=== PATIENT | female | born 1935 | race Caucasian/White ===

== ENCOUNTER 2018-01-04 14:12 | Outpatient (CLI) | payer MEDICARE, OTHER | END 2018-01-04 14:13 | disposition critical access hospital (66) | LOC: EMS 14:12 | PROVIDERS: ATTEND Surgery | DX: M25.551 Pain in right hip (principal); W01.0XXA Fall on same level from slipping, tripping and stumbling without subsequent striking against object, initial encounter | CPT/HCPCS: A0425; A0429 ==

== ENCOUNTER 2018-01-04 14:39 | Inpatient (IN) | payer MEDICARE, OTHER ==
--- NOTE | 2018-01-04 15:20 | XRAY Report ---
EXAM: RIGHT HIP AND PELVIS RADIOGRAPHY EXAM DATE: 01/04/2018 02:50 PM. HISTORY: Fall hip pain. COMPARISONS: None. TECHNIQUE: 1 view of the pelvis and 1 view of the hip. FINDINGS: Bones: Nondisplaced intertrochanteric fracture of the right femur. Joints: The bilateral hip, pubis symphysis, and sacroiliac joints are preserved. Soft Tissues: Normal. No soft tissue swelling. IMPRESSION: Nondisplaced intertrochanteric fracture of the right femur. [facility] Referring Provider Line: [phone] SITE ID: [id number]
--- NOTE | 2018-01-04 15:26 | ED Physician Documentation ---
PD HPI LOWER EXT INJURY - Stated complaint Stated Complaint: GLF R HIP PX - Chief complaint Chief Complaint: Ext Problem - History obtained from History obtained from: Patient, EMS - History of Present Illness PD HPI LOW EXT INJURY LOCATION: Right, Hip Type of injury: Fall Where injury occurred: Other (parking lot of [employer]) Timing - onset: Today Timing - duration: Hours Timing - details: Abrupt onset, Still present Improved by: Rest, Immobilization Worsened by: Moving, Palpating Associated symptoms: No: Weakness, Numbness, Tingling Contributing factors: No: Anticoagulated Similar symptoms before: Diagnosis (hip contusion) Recently seen: Not recently seen - Additional information Additional information: Previously healthy 82-year-old female was in the parking lot of [employer] with her shopping cart and her shopping cart started to roll away she turned to radha after the shopping cart and fell landing on her right hip. SHe was able to be helped up and she was able to bear weight on her left leg but not her right leg and she has pain in the hip. She is brought to the hospital by ambulance without shortening or external rotation. Review of Systems Constitutional: denies: Fever, Chills, Myalgias Eyes: denies: Decreased vision Ears: denies: Ear pain Nose: denies: Rhinorrhea / runny nose, Congestion Throat: denies: Dental pain / toothache, Sore throat Cardiac: denies: Chest pain / pressure, Palpitations Respiratory: denies: Dyspnea, Cough GI: denies: Abdominal Pain, Nausea, Vomiting, Diarrhea : denies: Dysuria, Frequency Skin: denies: Rash Musculoskeletal: reports: Extremity pain, Joint pain, Pain with weight bearing. 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 - Present Medications Home Medications: Ambulatory Orders Medication Instructions Recorded Confirmed Levothyroxine [Synthroid] 25 mcg PO DAILY 01/04/18 01/04/18 - Allergies Allergies/Adverse Reactions: Allergies Allergy/AdvReac Type Severity Reaction Status Date / Time No Known Drug Allergies Allergy Verified 01/04/18 14:48 - Social History Does the pt smoke?: No Smoking Status: Never smoker Does the pt drink ETOH?: No Does the pt have substance abuse?: No - Immunizations Immunizations are current?: Yes PD ED PE NORMAL - Vitals Vital signs reviewed: Yes (Hypertensive) - General General: Alert and oriented X 3, No acute distress, Well developed/nourished, Other (Slim 5 foot tall 82-year-old female who is in no distress she appears to be in good health.) - HEENT HEENT: Atraumatic, PERRL, EOMI - Neck Neck: Supple, no meningeal sign - Cardiac Cardiac: RRR, No murmur - Respiratory Respiratory: No respiratory distress, Clear bilaterally - Abdomen Abdomen: Soft, Non tender - Back Back: No CVA TTP, No spinal TTP - Derm Derm: Normal color, Warm and dry, No rash - Extremities Extremities: No deformity, No edema, Other (There is pain to flexion extension of the hip there is not much pain on external rotation there is no shortening or rotation in the distal neurovascular components are intact. There is pain to palpation posteriorly over the trochanter.) - Neuro Neuro: No motor deficit, No sensory deficit Eye Opening: Spontaneous Motor: Obeys Commands Verbal: Oriented GCS Score: 15 - Psych Psych: Normal mood, Normal affect Results - Vitals Vitals: Vital Signs - 24 hr 01/04/18 14:40 Temperature 36.5 C Heart Rate 67 Respiratory 18 Rate Blood Pressure 191/83 H O2 Saturation 97 Oxygen O2 Source Room air - Labs Labs: Laboratory Tests 01/04/18 01/04/18 01/04/18 15:31 15:31 15:31 WBC 6.7 RBC 4.60 Hgb 14.8 Hct 43.5 MCV 94.5 MCH 32.2 H MCHC 34.0 RDW 13.1 Plt Count 228 MPV 7.6 L Neut # 6.0 Lymph # 0.4 L Furnas # 0.2 Eos # 0.0 Baso # 0.0 Absolute Nucleated RBC 0.00 Nucleated RBC % 0.0 Sodium 136 Potassium 3.8 Chloride 100 L Carbon Dioxide 28 Anion Gap 8.0 BUN 16 Creatinine 1.0 Estimated GFR (MDRD) 53 L Glucose 117 H Calcium 9.5 Total Bilirubin 0.8 AST 24 ALT 17 Alkaline Phosphatase 63 Troponin I < 0.04 Total Protein 7.2 Albumin 4.4 Globulin 2.8 Albumin/Globulin Ratio 1.6 Lipase 30 Urine Color Urine Clarity Urine pH Ur Specific [place] Urine Protein Urine Glucose (UA) Urine Ketones Urine Occult Blood Urine Nitrite Urine Bilirubin Urine Urobilinogen Ur Leukocyte Esterase Ur Microscopic Review Urine Culture Comments 01/04/18 16:23 WBC RBC Hgb Hct MCV MCH MCHC RDW Plt Count MPV Neut # Lymph # Furnas # Eos # Baso # Absolute Nucleated RBC Nucleated RBC % Sodium Potassium Chloride Carbon Dioxide Anion Gap BUN Creatinine Estimated GFR (MDRD) Glucose Calcium Total Bilirubin AST ALT Alkaline Phosphatase Troponin I Total Protein Albumin Globulin Albumin/Globulin Ratio Lipase Urine Color YELLOW Urine Clarity CLEAR Urine pH 6.0 Ur Specific [place] 1.010 Urine Protein NEGATIVE Urine Glucose (UA) NEGATIVE Urine Ketones NEGATIVE Urine Occult Blood NEGATIVE Urine Nitrite NEGATIVE Urine Bilirubin NEGATIVE Urine Urobilinogen 0.2 (NORMAL) Ur Leukocyte Esterase NEGATIVE Ur Microscopic Review NOT INDICATED Urine Culture Comments NOT INDICATED - Rads (name of study) right hip Radiology: Prelim report reviewed (Impression: Nondisplaced intertrochanteric fracture of the right femur.), EMP read indepedently, See rad report PD MEDICAL DECISION MAKING - ED course Complexity details: reviewed old records, reviewed results, re-evaluated patient , considered differential, d/w patient ED course: 82-year-old female with a fall today has an intertrochanteric fracture of the right hip. Dr. Glass is consulted in the case and recommends admission to medical service for potential surgery tomorrow. Dr. Deneen Donohue is consulted in the case for admission and will care for the patient in the hospital Departure - Departure Disposition: [facility] DC/Xfer Clinical Impression: Closed right hip fracture Qualifiers: Encounter type: initial encounter Qualified Code(s): S72.001A - Fracture of unspecified part of neck of right femur, initial encounter for closed fracture Condition: Stable
[2018-01-04 15:38] LABS: BASOPHILS % (AUTO) 0.5 %; EOSINOPHILS % (AUTO) 0.3 %; HGB - HEMOGLOBIN 14.8 g/dL (12.0-16.0); LYMPHOCYTES # (AUTO) 0.4 10^3/uL (1.5-3.5); LYMPHOCYTES % (AUTO) 6.6 %; MEAN CORPUSCULAR HEMOGLOBIN 32.2 pg (27.0-31.0); MEAN CORPUSCULAR VOLUME 94.5 fL (81.0-99.0); MEAN PLATELET VOLUME 7.6 fL (7.9-10.8); MONOCYTES # (AUTO) 0.2 10^3/uL (0.0-1.0); MONOCYTES % (AUTO) 3.6 %; PLT - PLATELET COUNT 228 10^3/uL (130-450); RED CELL DISTRIBUTION WIDTH 13.1 % (12.0-15.0); WHITE BLOOD COUNT 6.7 x10^3/uL (4.8-10.8)
[2018-01-04 15:47] LABS: ALBUMIN 4.4 g/dL (3.2-5.5); ALBUMIN/GLOBULIN RATIO 1.6 (1.0-2.2); BILIRUBIN,TOTAL 0.8 mg/dL (0.2-1.0); CALCIUM 9.5 mg/dL (8.5-10.3); TOTAL PROTEIN 7.2 g/dL (6.7-8.2)
[2018-01-04] MEDS ORDERED: KETOROLAC 60 MG/2 ML VIAL IVP STA (16:28)
[2018-01-04] MEDS ORDERED: SODIUM CHLORIDE FLUSH 0.9% 10 ML SYRINGE IVP PRN (16:30)
[2018-01-04 16:35] LABS: BILIRUBIN,URINE NEGATIVE (NEGATIVE); CLARITY,URINE CLEAR (CLEAR); GLUCOSE, URINE (UA) NEGATIVE (NEGATIVE); KETONES,URINE (UA) NEGATIVE (NEGATIVE); LEUKOCYTE ESTERASE, URINE NEGATIVE (NEGATIVE); NITRITE,URINE NEGATIVE (NEGATIVE); OCCULT BLOOD,URINE NEGATIVE (NEGATIVE); PROTEIN,URINE NEGATIVE (NEGATIVE); UROBILINOGEN,URINE 0.2 (NORMAL) E.U./dL (NORMAL)
[2018-01-04] MEDS ORDERED: ZOLPIDEM 5 MG TABLET PO PRN (16:35)
[2018-01-04] MEDS ORDERED: HYDROcod/ACETAM 5/325 MG TABLET PO PRN (16:35)
[2018-01-04] MEDS ORDERED: ONDANSETRON 4 MG/2 ML VIAL IVP PRN (16:35)
[2018-01-04] MEDS ORDERED: ACETAMINOPHEN 325 MG TABLET PO PRN (16:35)
--- NOTE | 2018-01-04 16:56 | HISTORY & PHYSICAL EXAMINATION ---
Chief Complaint - Chief Complaint Chief Complaint: right hip injury History of Present Illness - Admitted From Admitted From:: ER - History Obtained From History obtained from: pt - History of Present Illness HPI Comment/Other: Ms. Aguilar is 82-year-old female with a past medical history of hypothyroidism, who present ER for right hip injury. Pt report she was the parking lot of a grocery store. Her shopping cart was starting to run. She tried to grasp and radha the shopping cart but fall and hit the right hip at ground. When she moves her right leg she feel very pain. No pain when she rest her right leg. Pt denies other injury. Denies other complaints. Lab test in ER is unremarkable. Xray of hip reveals nondisplaced intertrochanteric fracture of the right femur. Orthopedics was consulted. pt will have surgery tomorrow. 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 Pt had one son and one daughter. Living arrangement: At home Living Situation: With spouse/s.o. Social History Notes: pt denies cigarette smoking, alcohol and drug abuse. - Substance History Use: Uses substance without health or social issues: NONE Abuse: Recurrent use of substance despite neg consequences: NONE Dependence: Experiences withdrawal or developed tolerances: NONE - POLST POLST Status: Full Code Meds/Allgy - Home Medications Home Medications: Ambulatory Orders Medication Instructions Recorded Confirmed Calcium/Magnesium/Vitamin D3 1 each PO DAILY 01/04/18 01/04/18 [Trevor-Mag Complex 300-150 mg Tab] Cholecalciferol (Vitamin D3) 5,000 unit PO DAILY 01/04/18 01/04/18 [Vitamin D3] Cyanocobalamin (Vitamin B-12) 500 mcg SL DAILY 01/04/18 01/04/18 [Vitamin B-12 (500 mcg sublingual)] Levothyroxine [Synthroid] 25 mcg PO DAILY 01/04/18 01/04/18 - Allergies Allergies/Adverse Reactions: Allergies Allergy/AdvReac Type Severity Reaction Status Date / Time No Known Drug Allergies Allergy Verified 01/04/18 14:48 Review of Systems - Constitutional Constitutional: denies: Fatigue, Fever, Chills, Malaise, Weakness, Poor appetite , Diaphoresis, Night sweats, Weight gain, Weight loss - Eyes Eyes: denies: Pain, Irritation, Amaurosis, Blurred vision, Spots in vision, Field loss, Vision loss, Dipolpia - Ears, Nose & Throat Ears, Nose & Throat: denies: Ear pain, Hearing loss, Hearing aids, Tinnitus, Vertigo, Nasal pain, Nasal discharge, Nosebleeds, Nasal obstruction, Nasal congestion, Postnasal drainage, Dentures, Sore throat, Bleeding gums - Cardiovascular Cariovascular: denies: Irregular heart rate, Palpitations, Chest pain, Edema, Lightheadedness, Syncope, Exertional dyspnea, Decr. exercise tolerance - Respiratory Respiratory: denies: Cough, Sputum production, Wheezing, Snoring, Hemoptysis, Orthopnea, SOB at rest, SOB with exertion, Stridor, Pleuritic pain - Gastrointestinal Gastrointestinal: denies: Abdominal pain, Abdominal distention, Constipation, Diarrhea, Change in bowel habits, Rectal bleeding, Black stools, Bloody stools, Nausea, Vomiting, Spencer blood emesis, Coffee grounds emesis, Reflux/heartburn - Genitourinary Genitourinary: denies: Dysuria, Frequency, Urgency, Hematuria, Incontinence, Flank pain, Nocturia - Musculoskeletal Musculoskeletal: denies: Muscle pain, Back pain, Muscle aches, Stiffness, Limited range of motion, Muscle weakness, Gout, Joint pain - Integumentary Integumentary: denies: Rash, Pruritis, Lesions, Dryness, Lumps, Acne, Pigment changes, Nail changes - Neurological Neurological: denies: General weakness, Focal weakness, Headache, Dizziness, Numbness, Memory problems, Pre-existing deficit, Abnormal gait, Seizures, Incoordination, Slurred speech - Psychiatric Psychiatric: denies: Depression, Anxiety, Suicidal, Delusions, Hallucinations, Homicidal - Endocrine Endocrine: denies: Polyuria, Polydypsia, Polyphagia, Intolerance to cold, Intolerance to heat - Hematologic/Lymphatic Hematologic/Lymphatic: denies: Anemia, Bruising, Petechiae, Lymphadenopathy, Bleeding tendencies, Recurrent infections Exam - Vital Signs Reviewed Vital Signs: Yes Vital Signs: Vital Signs x48h Temp Pulse Resp BP Pulse Ox 01/04/18 14:40 36.5 C 67 18 191/83 H 97 - Physical Exam General Appearance: positive: No acute distress, Alert. negative: Lethargic Eyes Bilateral: positive: Normal inspection, PERRL, No lid inflammation, Conjunctivae nml ENT: positive: ENT inspection nml, Pharynx nml, No signs of dehydration. negative: Purulent nasal drainage, Pharyngeal erythema, Oral lesions Neck: positive: Nml inspection, Thyroid nml, No JVD, Trachea midline. negative : Thyromegaly, Lymphadenopathy (R), Lymphadenopathy (L), Stiff neck, Carotid bruit, Swelling/bruising, Tracheal deviation Respiratory: positive: Chest non-tender, No respiratory distress, Breath sounds nml. negative: Wheezes, Rales, Rhonchi Cardiovascular: positive: Regular rate & rhythm, No murmur, No gallop. negative : Irregularly irregular, Extrasystoles, Tachycardia, Bradycardia, Systolic murmur, Diastolic murmur Peripheral Pulses: positive: 2+ Abdomen: positive: Non-tender, No organomegaly, Nml bowel sounds, No distention. negative: Tenderness, Guarding, Rebound Back: positive: Nml inspection. negative: CVA tenderness (R), CVA tenderness (L ) Skin: positive: Color nml, No rash, Dry. negative: Cyanosis, Diaphoresis, Pallor, Skin rash Extremities: positive: Non-tender, Full ROM, Nml appearance. negative: Calf tenderness, Joint swelling, Yojana's sign/cords Neurologic/Psychiatric: positive: Oriented x3, Motor nml, Sensation nml, Mood/ affect nml. negative: Sensory loss, Facial droop, Slurred/abnml speech, Depressed mood/affect Conclusion/Plan - Problem List (1) Closed right hip fracture Conclusion/Plan: consult with orthopedics pain control NPO after midnight IVF after NPO lab and vital monitor Qualifiers: Encounter type: initial encounter Qualified Code(s): S72.001A - Fracture of unspecified part of neck of right femur, initial encounter for closed fracture (2) Hypothyroidism Conclusion/Plan: resume home synth test TSH (3) DVT prophylaxis Conclusion/Plan: SCD and lovenox (4) Full code status Conclusion/Plan: pt request full code status now. - Lab Results Fish Bones: 01/05/18 04:10 01/05/18 04:10 Core Measures - Anticipated LOS I expect patient to be DC'd or transferred within 96 hours.: Yes - DVT/VTE - Prophylaxis VTE/DVT Device ordered at admit?: Yes VTE/DVT Prophylaxis med ordered at admit?: Yes - Stroke - Rehab Assessment Rehab services assessment to be ordered?: No - AMI - Statin at Admit Aspirin Prescribed on Admit: No
[2018-01-04] MEDS: SODIUM CHLORIDE 0.9% 1,000 ML IV SCH (18:30)
[2018-01-04] MEDS: SODIUM CHLORIDE FLUSH 0.9% 10 ML SYRINGE IVP SCH ×2 (18:30→23:51)
--- NOTE | 2018-01-04 20:44 | PROVIDER PROGRESS NOTE ---
Subjective - Prog Note Date Prog Note Date: 01/04/18 Prog Note Time: 20:42 - Subjective Pt reports feeling: No change (Patient STH stumbled in parking lot this AM, landing onto right side. No LOC. Was unable to stand or weight bear on right side. No distal weakness/numbness) Objective - Vital Signs/Intake & Output Vital Signs: Vital Signs x48h Temp Pulse Pulse Resp BP BP Pulse Ox 01/04/18 17:47 37.2 C 62 18 133/62 H 98 01/04/18 17:11 36.6 C 66 20 184/90 H 98 Intake & Output: Intake & Output 01/01/18 01/02/18 01/03/18 01/04/18 23:59 23:59 23:59 23:59 Intake Total 240 Balance 240 - Lab Results Fish Bones: 01/04/18 15:31 01/04/18 15:31 - Diagnostic Imaging Diagnostic Imaging Comments: XR show non displaced right IT hip fracture - Other Results/Comments Other Results/Comments: EXAM: Right hip: 2+ llateral hip tenderness. Painful hip ROM. Moves toes ok. Sensation - intact. Good cap filling Assessment/Plan - Problem List (1) Closed right hip fracture Impression: Plan: Scheduled for CR and short interTan nailing of right hip fracture in AM. NPO after midnight. Risk and benefit of surgery explained and questions answered. Risk include anesthesia risk, malunion/nonunion, infection, blood loss, nerve damage, bllod clots, etc. Wishes to proceed with surgery as planned. Leg marked. Qualifiers: Encounter type: initial encounter Qualified Code(s): S72.001A - Fracture of unspecified part of neck of right femur, initial encounter for closed fracture
[2018-01-05 04:38] LABS: BASOPHILS % (AUTO) 0.5 %; EOSINOPHILS % (AUTO) 0.2 %; HGB - HEMOGLOBIN 13.1 g/dL (12.0-16.0); LYMPHOCYTES # (AUTO) 0.7 10^3/uL (1.5-3.5); LYMPHOCYTES % (AUTO) 9.3 %; MEAN CORPUSCULAR HEMOGLOBIN 32.2 pg (27.0-31.0); MEAN CORPUSCULAR HGB CONC 34.2 g/dL (32.0-36.0); MEAN CORPUSCULAR VOLUME 93.9 fL (81.0-99.0); MEAN PLATELET VOLUME 8.1 fL (7.9-10.8); MONOCYTES # (AUTO) 0.5 10^3/uL (0.0-1.0); MONOCYTES % (AUTO) 6.5 %; NEUTROPHILS # (AUTO) 6.2 10^3/uL (1.5-6.6); NEUTROPHILS % (AUTO) 83.5 %; PLT - PLATELET COUNT 185 10^3/uL (130-450); RED BLOOD COUNT 4.08 10^6/uL (4.20-5.40); RED CELL DISTRIBUTION WIDTH 12.8 % (12.0-15.0); WHITE BLOOD COUNT 7.4 x10^3/uL (4.8-10.8)
[2018-01-05 04:47] LABS: ALBUMIN 3.3 g/dL (3.2-5.5); ALBUMIN/GLOBULIN RATIO 1.5 (1.0-2.2); BILIRUBIN,TOTAL 0.9 mg/dL (0.2-1.0); CALCIUM 8.5 mg/dL (8.5-10.3); CREATININE 0.8 mg/dL (0.4-1.0); TOTAL PROTEIN 5.5 g/dL (6.7-8.2)
[2018-01-05] MEDS: SODIUM CHLORIDE 0.9% 1,000 ML IV SCH ×3 (06:31→23:00)
[2018-01-05] MEDS: LEVOTHYROXINE 25 MCG TABLET PO SCH (06:40)
[2018-01-05] MEDS ORDERED: LIDOCAINE MPF 1%-EPI 1:200000 30 ML VIAL ONE (07:23)
[2018-01-05] MEDS ORDERED: BUPIVACAINE 0.25% PF 30 ML VIAL ONE (07:23)
[2018-01-05] MEDS ORDERED: BUPIVACAINE 0.5%-EPI 1:200000 PF 10 ML VIAL ONE (07:24)
[2018-01-05] MEDS ORDERED: ceFAZolin 2 GM/50 ML 2 GM/50 ML BAG IV SCH (07:30)
[2018-01-05] MEDS ORDERED: SODIUM CHLORIDE 0.9% 1,000 ML IV ONE ×2 (08:11)
[2018-01-05] MEDS ORDERED: BUPIVACAINE 0.5%-EPI 1:200000 PF 30 ML VIAL SUBQ ONE ×2 (08:20)
--- NOTE | 2018-01-05 08:30 | CONSULTATION NOTE ---
DATE OF SERVICE: 01/05/2018 Physician: Quan Mead MD ORTHOPEDIC CONSULTATION REFERRING PHYSICIAN: Parveen Rod MD, of the emergency room department. CHIEF COMPLAINT: "My right hip hurts." HISTORY OF PRESENT ILLNESS: The patient is an 82-year-old, female who lives in an elderly community center, who apparently was offloading groceries from her shopping cart at [employer] store here on [facility]. As she completed the transfer to her car, the shopping cart began rolling away from her. In her attempt to gain control of the shopping cart, she stumbled and fell, landing on the right side. She noted immediate pain in her hip area. She was unable to stand or weight bear on the right side. She was eventually transferred to the emergency room here at [facility] where x-rays showed a nondisplaced right intertrochanteric hip fracture. The patient denied any loss of consciousness or other issues or problems. No distal weakness or numbness noted in the right lower extremity. No prior hip fractures. PHYSICAL EXAMINATION GENERAL: Showed a small, elderly, woman in mild amount of distress, lying in the bed. VITAL SIGNS: Stable. HEENT: Normocephalic. PERRLA. EOMs full. Vision and hearing grossly intact and symmetrical. Nose and throat clear. NECK: Supple. CHEST: Clear without any rales or crepitation. CARDIOVASCULAR: Regular rate and rhythm. S1 and S2 are without murmurs, rubs or gallops. ABDOMEN: Soft, nontender. Active bowel sounds. EXTREMITIES: Right hip was somewhat tender laterally on palpation. There was some painful range of motion of the hip with range of motion. The patient is able to move her toes well. Sensation intact in the lower extremity. Good capillary filling noted at the digits. NEUROLOGIC: The patient is alert and oriented x3. Answers questions appropriately. Motor and sensory exam appear to be grossly intact and symmetrical throughout. X-RAYS: X-ray shows a nondisplaced intertrochanteric hip fracture, right side. Minimal osteoarthritis noted. ASSESSMENT 1. Closed, minimally displaced, right intratrochanteric hip fracture. 2. History of hypothyroidism. PLAN: The patient has been cleared medically for surgical fixation of her hip fracture. Discussed the risks and benefits of her surgery with her today. Risks include but are not limited to anesthesia risks, infection, blood loss, blood clots, malunion, nonunion, hardware failure, wound healing issues. The patient appears to understand these risks. Questions were answered. She wishes to proceed as planned. Consent signed. Marked leg. TD: 01/05/2018 08:29
[2018-01-05] MEDS ORDERED: ROCURONIUM 50 MG/5 ML VIAL IVP ONE (09:00)
[2018-01-05] MEDS ORDERED: fentaNYL 100 MCG/2 ML VIAL IVP ONE (09:00)
[2018-01-05] MEDS: FAMOTIDINE 20 MG TABLET PO SCH (09:00)
[2018-01-05] MEDS: POLYETHYLENE GLYCOL 3350 17 GM PACKET PO SCH (09:00)
[2018-01-05] MEDS ORDERED: LIDOCAINE-MPF 2% 5 ML VIAL IM ONE (09:00)
[2018-01-05] MEDS ORDERED: PROPOFOL 200 MG/20 ML VIAL IVP ONE (09:00)
[2018-01-05] MEDS ORDERED: ENOXAPARIN 40 MG/0.4 ML SYRINGE SUBQ SCH (09:00)
[2018-01-05] MEDS ORDERED: DOCUSATE SODIUM 100 MG CAPSULE PO PRN (09:12)
[2018-01-05] MEDS ORDERED: SENNA 8.6 MG TABLET PO PRN (09:12)
[2018-01-05] MEDS ORDERED: PROCHLORPERAZINE 10 MG/2 ML VIAL IVP PRN (09:12)
[2018-01-05] MEDS ORDERED: ACETAMINOPHEN 1,000 MG/100 ML 100 ML IV PRN (09:12)
[2018-01-05] MEDS ORDERED: ACETAMINOPHEN 325 MG TABLET PO PRN (09:12)
--- NOTE | 2018-01-05 09:12 | OPERATIVE REPORT ---
Operative Report - General Admit Date: 01/04/18 Procedure Date: 01/05/18 Planned Procedure: Short interTan nailing of right hip fracture Pre-Op Diagnosis: Closed right intertrochanteric hip fracture Procedure Performed: Closed reduction and short interTan nailing of right hip fracture Post Op Diagnosis: Same - Procedure Note Primary Surgeon: Jesi Mead MD Anesthesia Provider: Stanley Lares MD Anesthesia Technique: General ET tube IV Fluids (mL): 800 Estimated Blood Loss (mL): 100 Complications: None
--- NOTE | 2018-01-05 10:07 | XRAY Report ---
INTRAOPERATIVE RIGHT HIP: 01/05/2018 CLINICAL INDICATION: Right hip pinning. FINDINGS: Intraoperative frontal and lateral views of the right hip demonstrate dynamic compression screw and short IM chino fixation of the intratrochanteric fracture. Alignment appears near anatomic. IMPRESSION: INTRAOPERATIVE IMAGING OF RIGHT HIP FRACTURE FIXATION. FLUOROSCOPY TIME: [address] Mead; 4 spot images obtained. TD: 01/05/2018 10[facility]05 [facility]
[2018-01-05] MEDS: MORPHINE 2 MG/ML CARPUJECT IVP PRN ×2 (11:15→22:22)
--- NOTE | 2018-01-05 12:09 | OPERATIVE REPORT ---
Physician: Quan Mead MD DATE OF PROCEDURE: 01/05/2018 PREOPERATIVE DIAGNOSIS: Closed right intertrochanteric hip fracture. POSTOPERATIVE DIAGNOSIS: Closed right intertrochanteric hip fracture. PROCEDURE PERFORMED: Closed reduction and insertion of short Intertan nail for right hip fracture. SURGEON: Quan Mead MD ANESTHESIA: General. DESCRIPTION OF PROCEDURE: The patient was taken to the operating room on the morning of 01/05/2018, where she was placed under general anesthetic without any complications. She was then positioned supine onto the fracture table. Her right hip was flexed and widely abducted with the leg held in the well leg ramirez. The fractured right lower extremity was then placed in the longitudinal traction with the leg internally rotated about 20 degrees. Preoperative C-arm fluoroscopic views of the hip showed good reduction of her hip fracture and good visualization of the proximal femur and femoral head. We then prepped and draped the lateral aspect of the right hip in the usual fashion for our procedure. Through a small oblique incision just proximal to the tip of the greater trochanter, we dissected down through to the tip of the greater trochanter. This was where we placed a threaded tip guidewire. This position was then confirmed fluoroscopically. Satisfied with this, we then drove the threaded guidewire through the tip of the greater trochanter, down the proximal femur to the level of the greater lesser trochanter. This was confirmed fluoroscopically. This was done in both AP and lateral projections. Satisfied with the position, we then placed a 16 mm channel reamer over our inserted guide pin and reamed the proximal femur down to the level of the lesser trochanter. The reamer and guide pin were then removed. We then inserted the selected short Intertan nail on the insertion apparatus down the prepared proximal femur. Satisfied with the depth of penetration, we then made a small skin incision and inserted the oval guide through the distal end of our insertion apparatus. We then, using power, placed the threaded guide pin through our oval guide sleeve and through the proximal femur up through the femoral neck and into the femoral head. Fluoroscopic view in AP and lateral projections showed good position of our guide pin and showed that the tip of the guide pin was within several millimeters of the subchondral bone of the femoral head. Satisfied with the position of our inserted guidewire, the measuring device was then used. We determined an 85 mm length x 11 mm diameter hip lag screw would be utilized. Next, we proceeded to remove our guide and used our cannulated reamer to repair the proximal femur over our inserted guidewire. After the proximal femur was then reamed, we then inserted the selected subtrochanteric hip lag screw into place. Fluoroscopic views showed good position of our hip lag screw in AP and lateral projections, satisfactory depth of penetration. Satisfied with this, we then removed our insertion apparatus for putting the hip lag screw in place. We then used the hinged screwdriver to lock the set screw in the proximal end of our nail. This was screwed in tightly and then backed off by 90 degrees to allow for compression of our fracture as needed. Next, our attention was directed for placing the distal locking screw. Through a small skin incision, the concentric gold and silver drill sleeve was inserted through the distal end of our insertion apparatus through a small incision up against the lateral femoral cortex at about mid shaft. We then used a drill to drill the femoral shaft bicorticate and through the distal end of our nail. Fluoroscopically, we determined that the screw was the proper depth and measuring off of our inserted drill, we determined a 35 mm length x 5 mm distal locking screw be utilized. Removing the silver drill sleeve and the drill, we then followed up with the selected distal locking screw and inserted this manually. Fluoroscopic views after the insertion of our screw showed that the screw was within the distal tip of the nail in both AP and lateral projections. Final views were also taken, AP and lateral of the hip , again showing a good fracture reduction and satisfactory placement of all hardware. We then removed the insertion apparatus from the proximal end of our nail with the ball-tipped screwdriver. We irrigated all the wounds thoroughly with saline. Closed the wound in layers using buried simple stitch of 0 Vicryl to approximate the fascia jayden layer proximally. Buried simple stitches of 2-0 Vicryl were utilized to approximate the fascia jayden layer and the proximal 2 incisions. Finally, skin marilynn used to approximate the skin edges of all the wounds. Marcaine 0.25% with epinephrine, 24 mL, was used to provide local anesthesia to our incisions. We then dressed the wounds. The patient transferred off the fracture table onto her bed and taken to recovery room in satisfactory condition. ESTIMATED BLOOD LOSS: 100 mL REPLACEMENT: 800 mL crystalloid. INTRAOPERATIVE COMPLICATIONS: None. PLAN: The patient may go weightbearing as tolerated on this extremity. Likely will be here for another 1-2 days and then afterwards will be transferred to a assisted facility for the balance of her postoperative rehabilitation. TD: 01/05/2018 09:47 VIKTOR
--- NOTE | 2018-01-05 15:31 | PROVIDER PROGRESS NOTE ---
Subjective - Prog Note Date Prog Note Date: 01/05/18 - Subjective Subjective: pt was status post of operation, comfortable sleep, vital stable Current Medications - Current Medications Current Medications: Active Medications Acetaminophen (Tylenol) 650 - 975 mg PO Q4HR PRN PRN Reason: PAIN Aspirin (Rich) 325 mg PO BIDWM [facility] Docusate Sodium (Colace 100mg Capsule) 100 mg PO BID PRN PRN Reason: Constipation Famotidine (Pepcid) 20 mg PO DAILY [facility] Cefazolin Sodium/Dextrose (Ancef 2 Gm/50 Ml) 2 gm in 50 mls @ 100 mls/hr IV Q8H [facility] Stop: 01/06/18 00:29 Acetaminophen (Ofirmev) 100 mls @ 400 mls/hr IV Q6HR PRN PRN Reason: PAIN Sodium Chloride (Normal Saline 0.9%) 1,000 mls @ 100 mls/hr IV .Q10H [facility] Last Admin: 01/05/18 12:41 Dose: 100 mls/hr Ketorolac Tromethamine (Toradol Inj) 15 mg IVP Q6HR PRN PRN Reason: PAIN Stop: 01/09/18 16:44 Levothyroxine Sodium (Synthroid) 25 mcg PO QDAC [facility] Last Admin: 01/05/18 06:40 Dose: 25 mcg Morphine Sulfate (Morphine (Carpuject)) 2 mg IVP Q2HR PRN PRN Reason: PAIN Ondansetron HCl (Zofran Inj) 4 mg IVP Q6HR PRN PRN Reason: Nausea / Vomiting Oxycodone/Acetaminophen (Percocet 5 Mg/325 Mg) 1 tab PO Q4HR PRN PRN Reason: PAIN Polyethylene Glycol (Miralax) 17 gm PO DAILY [facility] Prochlorperazine Edisylate (Compazine Inj) 10 mg IVP Q6HR PRN PRN Reason: Nausea / Vomiting Senna (Senokot) 17.2 mg PO Q12H PRN PRN Reason: Constipation Sodium Chloride (Normal Saline Flush 0.9%) 10 ml IVP 0100,0900,1700 [facility] Sodium Chloride (Normal Saline Flush 0.9%) 10 ml IVP PRN PRN PRN Reason: NEEDED PER PROVIDER ORDERS Zolpidem Tartrate (Ambien) 5 mg PO QPM PRN PRN Reason: Insomnia Calcium/Magnesium/Vitamin D3 [Trevor-Mag Complex 300-150 mg Tab] 1 each PO DAILY Cholecalciferol (Vitamin D3) [Vitamin D3] 5,000 unit PO DAILY 01/04/18 Cyanocobalamin (Vitamin B-12) [Vitamin B-12 (500 mcg sublingual)] 500 mcg SL DAILY 01/04/18 Levothyroxine [Synthroid] 25 mcg PO DAILY 01/04/18 Objective - Vital Signs/Intake & Output Reviewed Vital Signs: Yes Vital Signs: Vital Signs x48h Temp Pulse Pulse Pulse Resp BP BP 01/05/18 14:37 37.2 C 66 18 139/57 H 01/05/18 13:15 75 68 129/78 01/05/18 11:27 36.7 C 63 18 132/58 H 01/05/18 10:54 36.6 C 68 17 132/63 H 01/05/18 10:09 36.9 C 66 16 129/52 L 01/05/18 09:45 01/05/18 09:40 01/05/18 09:35 01/05/18 09:30 01/05/18 09:25 01/05/18 09:17 01/05/18 07:30 37.1 C 58 L 16 127/52 L BP Pulse Ox 01/05/18 14:37 97 01/05/18 13:15 138/56 H 01/05/18 11:27 95 01/05/18 10:54 97 01/05/18 10:09 95 01/05/18 09:45 100 01/05/18 09:40 98 01/05/18 09:35 100 01/05/18 09:30 100 01/05/18 09:25 100 01/05/18 09:17 100 01/05/18 07:30 96 Intake & Output: Intake & Output 01/02/18 01/03/18 01/04/18 01/05/18 23:59 23:59 23:59 23:59 Intake Total 740 1300 Output Total 1600 450 Balance -860 850 - Objective General Appearance: positive: No acute distress, Alert. negative: Lethargic ENT: positive: ENT inspection nml, Pharynx nml, No signs of dehydration. negative: Purulent nasal drainage, Pharyngeal erythema, Oral lesions Neck: positive: Nml inspection, Thyroid nml, No JVD, Trachea midline. negative : Thyromegaly, Lymphadenopathy (R), Lymphadenopathy (L), Stiff neck, Carotid bruit, Swelling/bruising, Tracheal deviation Respiratory: positive: Chest non-tender, No respiratory distress, Breath sounds nml. negative: Wheezes, Rales, Rhonchi Cardiovascular: positive: Regular rate & rhythm, No murmur, No gallop. negative : Irregularly irregular, Extrasystoles, Tachycardia, Bradycardia, Systolic murmur, Diastolic murmur Peripheral Pulses: 2+ Radial (R), 2+ Radial (L), 2+ Dorsalis pedis (R), 2+ Dorsalis pedis (L) Abdomen: positive: Non-tender, No organomegaly, Nml bowel sounds, No distention. negative: Tenderness, Guarding, Rebound Back: positive: Nml inspection. negative: CVA tenderness (R), CVA tenderness (L ) Skin: positive: Color nml, No rash, Warm, Dry. negative: Cyanosis, Diaphoresis , Pallor Extremities: positive: Non-tender, Full ROM, Nml appearance. negative: Calf tenderness, Joint swelling, Yojana's sign/cords Neurologic/Psychiatric: positive: Oriented x3, Sensation nml, Mood/affect nml. negative: Sensory loss, Facial droop, Slurred/abnml speech, Depressed mood/ affect - Lab Results Fish Bones: 01/05/18 04:10 01/05/18 04:10 Other Labs: Lab Results x24hrs 01/05/18 01/05/18 01/05/18 Range/Units 04:10 04:10 04:10 WBC 7.4 (4.8-10.8) x10^3/uL RBC 4.08 L (4.20-5.40) 10^6/uL Hgb 13.1 (12.0-16.0) g/dL Hct 38.3 (37.0-47.0) % MCV 93.9 (81.0-99.0) fL MCH 32.2 H (27.0-31.0) pg MCHC 34.2 (32.0-36.0) g/dL RDW 12.8 (12.0-15.0) % Plt Count 185 (130-450) 10^3/uL MPV 8.1 (7.9-10.8) fL Neut # 6.2 (1.5-6.6) 10^3/uL Lymph # 0.7 L (1.5-3.5) 10^3/uL [place] # 0.5 (0.0-1.0) 10^3/uL Eos # 0.0 (0.0-0.7) 10^3/uL Baso # 0.0 (0.0-0.1) 10^3/uL Absolute Nucleated RBC 0.00 x10^3/uL Nucleated RBC % 0.0 /100WBC Sodium 138 (135-145) mmol/L Potassium 3.6 (3.5-5.0) mmol/L Chloride 105 (101-111) mmol/L Carbon Dioxide 26 (21-32) mmol/L Anion Gap 7.0 (6-13) BUN 12 (6-20) mg/dL Creatinine 0.8 (0.4-1.0) mg/dL Estimated GFR (MDRD) 69 L (>89) Glucose 106 H (70-100) mg/dL Calcium 8.5 (8.5-10.3) mg/dL Total Bilirubin 0.9 (0.2-1.0) mg/dL AST 17 (10-42) IU/L ALT 15 (10-60) IU/L Alkaline Phosphatase 47 (42-121) IU/L Total Protein 5.5 L (6.7-8.2) g/dL Albumin 3.3 (3.2-5.5) g/dL Globulin 2.2 (2.1-4.2) g/dL Albumin/Globulin Ratio 1.5 (1.0-2.2) TSH 1.76 (0.34-5.60) uIU/mL Assessment/Plan - Problem List (1) Closed right hip fracture Impression: (1) Closed right hip fracture Conclusion/Plan: status post of operation, no complication in operation per report from surgeon vital stable, pt is comfortabl sleeping at the bed follow orthopedics's recommendation, PT/OT evaluation and treatment to pt pain control consult with orthopedics pain control NPO after midnight IVF after NPO lab and vital monitor (2) Hypothyroidism Conclusion/Plan: normal TSH continue home meds resume home synth test TSH Qualifiers: Encounter type: initial encounter Qualified Code(s): S72.001A - Fracture of unspecified part of neck of right femur, initial encounter for closed fracture
--- NOTE | 2018-01-05 15:33 | XRAY Report ---
[facility] : Fluoroscopy time only, no images submitted for interpretation. Fluoroscopy time 0 minutes, 26 seconds. VIKTOR
[2018-01-05] MEDS: ONDANSETRON 4 MG/2 ML VIAL IVP PRN (16:42)
[2018-01-05] MEDS ORDERED: BENZOCAINE/MENTHOL LOZENGE MM PRN (16:53)
[2018-01-05] MEDS: ceFAZolin 2 GM/50 ML 2 GM/50 ML BAG IV SCH (17:05)
[2018-01-05] MEDS: SODIUM CHLORIDE FLUSH 0.9% 10 ML SYRINGE IVP SCH (17:55)
[2018-01-05] MEDS: ASPIRIN 325 MG TABLET PO SCH (18:56)
[2018-01-06] MEDS: ceFAZolin 2 GM/50 ML 2 GM/50 ML BAG IV SCH (00:47)
[2018-01-06] MEDS: SODIUM CHLORIDE FLUSH 0.9% 10 ML SYRINGE IVP SCH ×3 (00:48→18:22)
[2018-01-06] MEDS: oxyCOD/ACETAMIN 5 MG/325 MG TABLET PO PRN ×2 (04:05→09:32)
[2018-01-06 05:46] LABS: BASOPHILS % (AUTO) 0.5 %; EOSINOPHILS % (AUTO) 0.4 %; HGB - HEMOGLOBIN 10.5 g/dL (12.0-16.0); LYMPHOCYTES # (AUTO) 0.6 10^3/uL (1.5-3.5); LYMPHOCYTES % (AUTO) 9.1 %; MEAN CORPUSCULAR HEMOGLOBIN 31.5 pg (27.0-31.0); MEAN CORPUSCULAR HGB CONC 33.2 g/dL (32.0-36.0); MONOCYTES # (AUTO) 0.5 10^3/uL (0.0-1.0); PLT - PLATELET COUNT 151 10^3/uL (130-450); RED BLOOD COUNT 3.33 10^6/uL (4.20-5.40); RED CELL DISTRIBUTION WIDTH 12.9 % (12.0-15.0); WHITE BLOOD COUNT 6.1 x10^3/uL (4.8-10.8)
[2018-01-06 05:54] LABS: ALBUMIN 2.8 g/dL (3.2-5.5); ALBUMIN/GLOBULIN RATIO 1.3 (1.0-2.2); BILIRUBIN,TOTAL 0.5 mg/dL (0.2-1.0); CREATININE 0.8 mg/dL (0.4-1.0)
[2018-01-06] MEDS: LEVOTHYROXINE 25 MCG TABLET PO SCH (06:33)
[2018-01-06] MEDS: POLYETHYLENE GLYCOL 3350 17 GM PACKET PO SCH (09:29)
[2018-01-06] MEDS: ASPIRIN 325 MG TABLET PO SCH ×2 (09:29→18:28)
[2018-01-06] MEDS: FAMOTIDINE 20 MG TABLET PO SCH (09:29)
[2018-01-06] MEDS: SODIUM CHLORIDE 0.9% 1,000 ML IV SCH ×2 (10:26→19:56)
--- NOTE | 2018-01-06 11:39 | PROVIDER PROGRESS NOTE ---
Subjective - Prog Note Date Prog Note Date: 01/06/18 - Subjective Pt reports feeling: Improved Subjective: pt walked with OT on morning, then she go to sleep. No other events reported Current Medications - Current Medications Current Medications: Active Medications Acetaminophen (Tylenol) 650 - 975 mg PO Q4HR PRN PRN Reason: PAIN Aspirin (Rich) 325 mg PO BIDWM [facility] Last Admin: 01/06/18 09:29 Dose: 325 mg Docusate Sodium (Colace 100mg Capsule) 100 mg PO BID PRN PRN Reason: Constipation Last Admin: 01/06/18 06:32 Dose: 100 mg Famotidine (Pepcid) 20 mg PO DAILY [facility] Last Admin: 01/06/18 09:29 Dose: 20 mg Acetaminophen (Ofirmev) 100 mls @ 400 mls/hr IV Q6HR PRN PRN Reason: PAIN Sodium Chloride (Normal Saline 0.9%) 1,000 mls @ 100 mls/hr IV .Q10H [facility] Last Admin: 01/06/18 10:26 Dose: 100 mls/hr Ketorolac Tromethamine (Toradol Inj) 15 mg IVP Q6HR PRN PRN Reason: PAIN Stop: 01/09/18 16:44 Levothyroxine Sodium (Synthroid) 25 mcg PO QDAC [facility] Last Admin: 01/06/18 06:33 Dose: 25 mcg Morphine Sulfate (Morphine (Carpuject)) 2 mg IVP Q2HR PRN PRN Reason: PAIN Last Admin: 01/05/18 22:22 Dose: 2 mg Ondansetron HCl (Zofran Inj) 4 mg IVP Q6HR PRN PRN Reason: Nausea / Vomiting Last Admin: 01/05/18 16:42 Dose: 4 mg Oxycodone/Acetaminophen (Percocet 5 Mg/325 Mg) 1 tab PO Q4HR PRN PRN Reason: PAIN Last Admin: 01/06/18 09:32 Dose: 1 tab Polyethylene Glycol (Miralax) 17 gm PO DAILY [facility] Last Admin: 01/06/18 09:29 Dose: 17 gm Prochlorperazine Edisylate (Compazine Inj) 10 mg IVP Q6HR PRN PRN Reason: Nausea / Vomiting Senna (Senokot) 17.2 mg PO Q12H PRN PRN Reason: Constipation Last Admin: 01/06/18 04:04 Dose: 17.2 mg Sodium Chloride (Normal Saline Flush 0.9%) 10 ml IVP 0100,0900,1700 [facility] Last Admin: 01/06/18 09:29 Dose: Not Given Sodium Chloride (Normal Saline Flush 0.9%) 10 ml IVP PRN PRN PRN Reason: NEEDED PER PROVIDER ORDERS Throat Lozenges (Cepacol) 1 lozenge MM Q2HR PRN PRN Reason: Throat pain Zolpidem Tartrate (Ambien) 5 mg PO QPM PRN PRN Reason: Insomnia Calcium/Magnesium/Vitamin D3 [Trevor-Mag Complex 300-150 mg Tab] 1 each PO DAILY Cholecalciferol (Vitamin D3) [Vitamin D3] 5,000 unit PO DAILY 01/04/18 Cyanocobalamin (Vitamin B-12) [Vitamin B-12 (500 mcg sublingual)] 500 mcg SL DAILY 01/04/18 Levothyroxine [Synthroid] 25 mcg PO DAILY 01/04/18 Objective - Vital Signs/Intake & Output Reviewed Vital Signs: Yes Vital Signs: Vital Signs x48h Temp Pulse Resp BP Pulse Ox 01/06/18 10:05 37.3 C 70 18 95/63 93 01/06/18 06:40 36.5 C 65 16 134/57 H 95 Intake & Output: Intake & Output 01/03/18 01/04/18 01/05/18 01/06/18 23:59 23:59 23:59 23:59 Intake Total 740 4050 1350 Output Total 1600 975 800 Balance -860 3075 550 - Objective General Appearance: positive: No acute distress, Alert. negative: Lethargic Eyes Bilateral: positive: Normal inspection, PERRL, No lid inflammation, Conjunctivae nml ENT: positive: ENT inspection nml, Pharynx nml, No signs of dehydration. negative: Purulent nasal drainage, Pharyngeal erythema, Oral lesions Neck: positive: Nml inspection, Thyroid nml, No JVD, Trachea midline. negative : Thyromegaly, Lymphadenopathy (R), Lymphadenopathy (L), Stiff neck, Carotid bruit, Swelling/bruising, Tracheal deviation Respiratory: positive: Chest non-tender, No respiratory distress, Breath sounds nml. negative: Wheezes, Rales, Rhonchi Cardiovascular: positive: Regular rate & rhythm, No murmur, No gallop. negative : Irregularly irregular, Extrasystoles, Tachycardia, Bradycardia, Systolic murmur, Diastolic murmur Peripheral Pulses: 2+ Radial (R), 2+ Radial (L), 2+ Dorsalis pedis (R), 2+ Dorsalis pedis (L) Abdomen: positive: Non-tender, No organomegaly, Nml bowel sounds, No distention. negative: Tenderness, Guarding, Rebound Back: positive: Nml inspection. negative: CVA tenderness (R), CVA tenderness (L ) Skin: positive: Color nml, No rash, Warm, Dry. negative: Cyanosis, Diaphoresis , Pallor Extremities: positive: Non-tender, Full ROM, Nml appearance. negative: Calf tenderness, Joint swelling, Yojana's sign/cords Neurologic/Psychiatric: positive: Oriented x3, Sensation nml, Mood/affect nml. negative: Sensory loss, Facial droop, Slurred/abnml speech, Depressed mood/ affect - Lab Results Fish Bones: 01/06/18 05:24 01/06/18 05:24 Other Labs: Lab Results x24hrs 01/06/18 01/06/18 Range/Units 05:24 05:24 WBC 6.1 (4.8-10.8) x10^3/uL RBC 3.33 L (4.20-5.40) 10^6/uL Hgb 10.5 L (12.0-16.0) g/dL Hct 31.6 L (37.0-47.0) % MCV 95.0 (81.0-99.0) fL MCH 31.5 H (27.0-31.0) pg MCHC 33.2 (32.0-36.0) g/dL RDW 12.9 (12.0-15.0) % Plt Count 151 (130-450) 10^3/uL MPV 8.0 (7.9-10.8) fL Neut # 5.0 (1.5-6.6) 10^3/uL Lymph # 0.6 L (1.5-3.5) 10^3/uL Andrew # 0.5 (0.0-1.0) 10^3/uL Eos # 0.0 (0.0-0.7) 10^3/uL Baso # 0.0 (0.0-0.1) 10^3/uL Absolute Nucleated RBC 0.00 x10^3/uL Nucleated RBC % 0.0 /100WBC Sodium 133 L (135-145) mmol/L Potassium 3.5 (3.5-5.0) mmol/L Chloride 106 (101-111) mmol/L Carbon Dioxide 22 (21-32) mmol/L Anion Gap 5.0 L (6-13) BUN 12 (6-20) mg/dL Creatinine 0.8 (0.4-1.0) mg/dL Estimated GFR (MDRD) 69 L (>89) Glucose 134 H (70-100) mg/dL Calcium 8.0 L (8.5-10.3) mg/dL Total Bilirubin 0.5 (0.2-1.0) mg/dL AST 20 (10-42) IU/L ALT 10 (10-60) IU/L Alkaline Phosphatase 38 L (42-121) IU/L Total Protein 5.0 L (6.7-8.2) g/dL Albumin 2.8 L (3.2-5.5) g/dL Globulin 2.2 (2.1-4.2) g/dL Albumin/Globulin Ratio 1.3 (1.0-2.2) Assessment/Plan - Problem List (1) Closed right hip fracture Impression: (1) Closed right hip fracture Conclusion/Plan: status post day one pt had the procedure of Closed reduction and short interTan nailing of right hip fracture on yesterday continue PT/OT evaluation and treatment pain control DVT prophylaxis lab test and vital monitor status post of operation, no complication in operation per report from surgeon vital stable, pt is comfortabl sleeping at the bed follow orthopedics's recommendation, PT/OT evaluation and treatment to pt pain control consult with orthopedics pain control NPO after midnight IVF after NPO lab and vital monitor (2) Hypothyroidism stable, continue home meds Qualifiers: Encounter type: initial encounter Qualified Code(s): S72.001A - Fracture of unspecified part of neck of right femur, initial encounter for closed fracture
[2018-01-06] MEDS: KETOROLAC 15 MG/ML VIAL IVP PRN (22:17)
[2018-01-07] MEDS: SODIUM CHLORIDE FLUSH 0.9% 10 ML SYRINGE IVP SCH ×3 (00:36→16:38)
[2018-01-07 06:03] LABS: BASOPHILS % (AUTO) 0.5 %; EOSINOPHILS # (AUTO) 0.1 10^3/uL (0.0-0.7); EOSINOPHILS % (AUTO) 2.4 %; HGB - HEMOGLOBIN 10.5 g/dL (12.0-16.0); LYMPHOCYTES # (AUTO) 0.6 10^3/uL (1.5-3.5); LYMPHOCYTES % (AUTO) 9.4 %; MEAN CORPUSCULAR HEMOGLOBIN 31.8 pg (27.0-31.0); MEAN CORPUSCULAR HGB CONC 33.8 g/dL (32.0-36.0); MEAN PLATELET VOLUME 8.2 fL (7.9-10.8); MONOCYTES # (AUTO) 0.4 10^3/uL (0.0-1.0); MONOCYTES % (AUTO) 6.3 %; NEUTROPHILS # (AUTO) 4.8 10^3/uL (1.5-6.6); NEUTROPHILS % (AUTO) 81.4 %; PLT - PLATELET COUNT 159 10^3/uL (130-450); RED BLOOD COUNT 3.31 10^6/uL (4.20-5.40); WHITE BLOOD COUNT 5.9 x10^3/uL (4.8-10.8)
[2018-01-07] MEDS: SODIUM CHLORIDE 0.9% 1,000 ML IV SCH ×2 (06:13→12:36)
[2018-01-07] MEDS: LEVOTHYROXINE 25 MCG TABLET PO SCH (06:13)
[2018-01-07 06:15] LABS: ALBUMIN 2.8 g/dL (3.2-5.5); ALBUMIN/GLOBULIN RATIO 1.2 (1.0-2.2); ALKALINE PHOSPHATASE 42 IU/L (42-121); ALT ALANINE AMINOTRANSFERASE < 10 IU/L (10-60); AST ASPARTATE AMINOTRANSFERASE 18 IU/L (10-42); BILIRUBIN,TOTAL 0.7 mg/dL (0.2-1.0); BUN - BLOOD UREA NITROGEN 12 mg/dL (6-20); CALCIUM 7.9 mg/dL (8.5-10.3); CARBON DIOXIDE - CO2 24 mmol/L (21-32); CHLORIDE 111 mmol/L (101-111); CREATININE 0.7 mg/dL (0.4-1.0); GFR - MDRD 81 (>89); GLUCOSE 107 mg/dL (70-100); SODIUM 140 mmol/L (135-145); TOTAL PROTEIN 5.1 g/dL (6.7-8.2)
[2018-01-07] MEDS ORDERED: CALCIUM GLUCONATE 1,000 MG in SODIUM CHLORIDE 0.9% 50 ML IV ONE (07:32)
[2018-01-07] MEDS: KETOROLAC 15 MG/ML VIAL IVP PRN ×2 (07:49→14:06)
[2018-01-07] MEDS: POLYETHYLENE GLYCOL 3350 17 GM PACKET PO SCH (08:05)
[2018-01-07] MEDS: FAMOTIDINE 20 MG TABLET PO SCH (08:16)
[2018-01-07] MEDS: oxyCOD/ACETAMIN 5 MG/325 MG TABLET PO PRN ×3 (08:16→16:07)
[2018-01-07] MEDS: ASPIRIN 325 MG TABLET PO SCH ×2 (08:16→16:38)
--- NOTE | 2018-01-07 11:16 | PROVIDER PROGRESS NOTE ---
Subjective - Prog Note Date Prog Note Date: 01/07/18 - Subjective Pt reports feeling: Improved Subjective: pt feels much better. Walk with PT/OT. Pain is good controlled. Pt agree to go to SNF for rehab Current Medications - Current Medications Current Medications: Active Medications Acetaminophen (Tylenol) 650 - 975 mg PO Q4HR PRN PRN Reason: PAIN Aspirin (Rich) 325 mg PO BIDWM [facility] Last Admin: 01/07/18 08:16 Dose: 325 mg Docusate Sodium (Colace 100mg Capsule) 100 mg PO BID PRN PRN Reason: Constipation Last Admin: 01/06/18 06:32 Dose: 100 mg Famotidine (Pepcid) 20 mg PO DAILY [facility] Last Admin: 01/07/18 08:16 Dose: 20 mg Acetaminophen (Ofirmev) 100 mls @ 400 mls/hr IV Q6HR PRN PRN Reason: PAIN Sodium Chloride (Normal Saline 0.9%) 1,000 mls @ 100 mls/hr IV .Q10H [facility] Last Admin: 01/07/18 06:13 Dose: 100 mls/hr Ketorolac Tromethamine (Toradol Inj) 15 mg IVP Q6HR PRN PRN Reason: PAIN Stop: 01/09/18 16:44 Last Admin: 01/07/18 07:49 Dose: 15 mg Levothyroxine Sodium (Synthroid) 25 mcg PO QDAC [facility] Last Admin: 01/07/18 06:13 Dose: 25 mcg Morphine Sulfate (Morphine (Carpuject)) 2 mg IVP Q2HR PRN PRN Reason: PAIN Last Admin: 01/05/18 22:22 Dose: 2 mg Ondansetron HCl (Zofran Inj) 4 mg IVP Q6HR PRN PRN Reason: Nausea / Vomiting Last Admin: 01/05/18 16:42 Dose: 4 mg Oxycodone/Acetaminophen (Percocet 5 Mg/325 Mg) 1 tab PO Q4HR PRN PRN Reason: PAIN Last Admin: 01/07/18 08:16 Dose: 1 tab Polyethylene Glycol (Miralax) 17 gm PO DAILY [facility] Last Admin: 01/06/18 09:29 Dose: 17 gm Prochlorperazine Edisylate (Compazine Inj) 10 mg IVP Q6HR PRN PRN Reason: Nausea / Vomiting Senna (Senokot) 17.2 mg PO Q12H PRN PRN Reason: Constipation Last Admin: 01/06/18 04:04 Dose: 17.2 mg Sodium Chloride (Normal Saline Flush 0.9%) 10 ml IVP 0100,0900,1700 GINA Last Admin: 01/07/18 09:19 Dose: Not Given Sodium Chloride (Normal Saline Flush 0.9%) 10 ml IVP PRN PRN PRN Reason: NEEDED PER PROVIDER ORDERS Throat Lozenges (Cepacol) 1 lozenge MM Q2HR PRN PRN Reason: Throat pain Zolpidem Tartrate (Ambien) 5 mg PO QPM PRN PRN Reason: Insomnia Calcium/Magnesium/Vitamin D3 [Trevor-Mag Complex 300-150 mg Tab] 1 each PO DAILY Cholecalciferol (Vitamin D3) [Vitamin D3] 5,000 unit PO DAILY 01/04/18 Cyanocobalamin (Vitamin B-12) [Vitamin B-12 (500 mcg sublingual)] 500 mcg SL DAILY 01/04/18 Levothyroxine [Synthroid] 25 mcg PO DAILY 01/04/18 Objective - Vital Signs/Intake & Output Reviewed Vital Signs: Yes Vital Signs: Vital Signs x48h Temp Pulse Resp BP Pulse Ox 01/07/18 07:43 37.1 C 65 19 154/49 H 96 01/07/18 05:00 36.9 C 65 18 130/63 96 Intake & Output: Intake & Output 01/04/18 01/05/18 01/06/18 01/07/18 23:59 23:59 23:59 23:59 Intake Total 740 4050 4000 1660 Output Total 8032 005 9641 1400 Balance -860 3075 2700 260 - Objective General Appearance: positive: No acute distress, Alert. negative: Lethargic Eyes Bilateral: positive: Normal inspection, PERRL. negative: No lid inflammation, Conjunctivae nml ENT: positive: ENT inspection nml, Pharynx nml, No signs of dehydration. negative: Purulent nasal drainage, Pharyngeal erythema, Oral lesions Neck: positive: Nml inspection, Thyroid nml, No JVD, Trachea midline. negative : Thyromegaly, Lymphadenopathy (R), Lymphadenopathy (L), Stiff neck, Carotid bruit, Swelling/bruising, Tracheal deviation Respiratory: positive: Chest non-tender, No respiratory distress, Breath sounds nml. negative: Wheezes, Rales, Rhonchi Cardiovascular: positive: Regular rate & rhythm, No murmur, No gallop. negative : Irregularly irregular, Extrasystoles, Tachycardia, Bradycardia, Systolic murmur, Diastolic murmur Peripheral Pulses: 2+ Radial (R), 2+ Radial (L), 2+ Dorsalis pedis (R), 2+ Dorsalis pedis (L) Abdomen: positive: Non-tender, No organomegaly, Nml bowel sounds, No distention. negative: Tenderness, Guarding, Rebound Back: positive: Nml inspection. negative: CVA tenderness (R), CVA tenderness (L ) Skin: positive: Color nml, No rash, Warm, Dry. negative: Cyanosis, Diaphoresis , Pallor Extremities: positive: Non-tender, Full ROM, Nml appearance. negative: Calf tenderness, Joint swelling, Yojana's sign/cords Neurologic/Psychiatric: positive: Oriented x3, Sensation nml, Mood/affect nml. negative: Sensory loss, Facial droop, Slurred/abnml speech, Depressed mood/ affect - Lab Results Fish Bones: 01/07/18 05:20 01/07/18 05:20 Other Labs: Lab Results x24hrs 01/07/18 01/07/18 Range/Units 05:20 05:20 WBC 5.9 (4.8-10.8) x10^3/uL RBC 3.31 L (4.20-5.40) 10^6/uL Hgb 10.5 L (12.0-16.0) g/dL Hct 31.1 L (37.0-47.0) % MCV 94.0 (81.0-99.0) fL MCH 31.8 H (27.0-31.0) pg MCHC 33.8 (32.0-36.0) g/dL RDW 13.0 (12.0-15.0) % Plt Count 159 (130-450) 10^3/uL MPV 8.2 (7.9-10.8) fL Neut # 4.8 (1.5-6.6) 10^3/uL Lymph # 0.6 L (1.5-3.5) 10^3/uL Porter # 0.4 (0.0-1.0) 10^3/uL Eos # 0.1 (0.0-0.7) 10^3/uL Baso # 0.0 (0.0-0.1) 10^3/uL Absolute Nucleated RBC 0.00 x10^3/uL Nucleated RBC % 0.0 /100WBC Sodium 140 (135-145) mmol/L Potassium 3.6 (3.5-5.0) mmol/L Chloride 111 (101-111) mmol/L Carbon Dioxide 24 (21-32) mmol/L Anion Gap 5.0 L (6-13) BUN 12 (6-20) mg/dL Creatinine 0.7 (0.4-1.0) mg/dL Estimated GFR (MDRD) 81 L (>89) Glucose 107 H (70-100) mg/dL Calcium 7.9 L (8.5-10.3) mg/dL Total Bilirubin 0.7 (0.2-1.0) mg/dL AST 18 (10-42) IU/L ALT < 10 L (10-60) IU/L Alkaline Phosphatase 42 (42-121) IU/L Total Protein 5.1 L (6.7-8.2) g/dL Albumin 2.8 L (3.2-5.5) g/dL Globulin 2.3 (2.1-4.2) g/dL Albumin/Globulin Ratio 1.2 (1.0-2.2) Assessment/Plan - Problem List (1) Closed right hip fracture Impression: (1) Closed right hip fracture Conclusion/Plan: status post of operation day two pt did not make the decision if D/C to SNF, she wait for her daughter to come today. our recommendation from PT/OT is to D/C to SNF based on pt's recovery from orthopedic surgery continue PT/OT continue pain control status post day one pt had the procedure of Closed reduction and short interTan nailing of right hip fracture on yesterday continue PT/OT evaluation and treatment pain control DVT prophylaxis lab test and vital monitor status post of operation, no complication in operation per report from surgeon vital stable, pt is comfortabl sleeping at the bed follow orthopedics's recommendation, PT/OT evaluation and treatment to pt pain control consult with orthopedics pain control NPO after midnight IVF after NPO lab and vital monitor (2) Hypothyroidism stable, continue home meds Qualifiers: Qualifiers: Encounter type: initial encounter Qualified Code(s): S72.001A - Fracture of unspecified part of neck of right femur, initial encounter for closed fracture
--- NOTE | 2018-01-07 13:33 | PROVIDER PROGRESS NOTE ---
Subjective - Prog Note Date Prog Note Date: 01/07/18 Prog Note Time: 13:31 - Subjective Pt reports feeling: Improved (A little dizzy sitting up in chair. No distal weakness/numbness) Objective - Vital Signs/Intake & Output Vital Signs: Vital Signs x48h Temp Pulse Resp BP Pulse Ox 01/07/18 13:20 36.7 C 67 19 124/60 96 01/07/18 07:43 37.1 C 65 19 154/49 H 96 Intake & Output: Intake & Output 01/04/18 01/05/18 01/06/18 01/07/18 23:59 23:59 23:59 23:59 Intake Total 740 4050 4000 2778.333 Output Total 5244 534 8087 1400 Balance -860 3075 2700 1378.333 - Lab Results Fish Bones: 01/07/18 05:20 01/07/18 05:20 Other Labs: Lab Results x24hrs 01/07/18 01/07/18 Range/Units 05:20 05:20 WBC 5.9 (4.8-10.8) x10^3/uL RBC 3.31 L (4.20-5.40) 10^6/uL Hgb 10.5 L (12.0-16.0) g/dL Hct 31.1 L (37.0-47.0) % MCV 94.0 (81.0-99.0) fL MCH 31.8 H (27.0-31.0) pg MCHC 33.8 (32.0-36.0) g/dL RDW 13.0 (12.0-15.0) % Plt Count 159 (130-450) 10^3/uL MPV 8.2 (7.9-10.8) fL Neut # 4.8 (1.5-6.6) 10^3/uL Lymph # 0.6 L (1.5-3.5) 10^3/uL Bay # 0.4 (0.0-1.0) 10^3/uL Eos # 0.1 (0.0-0.7) 10^3/uL Baso # 0.0 (0.0-0.1) 10^3/uL Absolute Nucleated RBC 0.00 x10^3/uL Nucleated RBC % 0.0 /100WBC Sodium 140 (135-145) mmol/L Potassium 3.6 (3.5-5.0) mmol/L Chloride 111 (101-111) mmol/L Carbon Dioxide 24 (21-32) mmol/L Anion Gap 5.0 L (6-13) BUN 12 (6-20) mg/dL Creatinine 0.7 (0.4-1.0) mg/dL Estimated GFR (MDRD) 81 L (>89) Glucose 107 H (70-100) mg/dL Calcium 7.9 L (8.5-10.3) mg/dL Total Bilirubin 0.7 (0.2-1.0) mg/dL AST 18 (10-42) IU/L ALT < 10 L (10-60) IU/L Alkaline Phosphatase 42 (42-121) IU/L Total Protein 5.1 L (6.7-8.2) g/dL Albumin 2.8 L (3.2-5.5) g/dL Globulin 2.3 (2.1-4.2) g/dL Albumin/Globulin Ratio 1.2 (1.0-2.2) - Other Results/Comments Other Results/Comments: EXAM: Moves toes well. Sensation intact. Good cap filling Sitting up in chair; transferring well out of bed - WBAT on right Assessment/Plan - Problem List (1) Closed right hip fracture Impression: Satis post op PLAN: To SNF Sat. Continue walker ambulation - weight bearing as tolerated on right. Follow up in orthopedic office in 10-14 days for marilynn out and reXR. Qualifiers: Encounter type: initial encounter Qualified Code(s): S72.001A - Fracture of unspecified part of neck of right femur, initial encounter for closed fracture
[2018-01-07] MEDS: SODIUM CHLORIDE FLUSH 0.9% 10 ML SYRINGE IVP PRN ×2 (13:35→14:09)
[2018-01-07] MEDS: ONDANSETRON 4 MG/2 ML VIAL IVP PRN (13:36)
[2018-01-07] MEDS ORDERED: SODIUM CHLORIDE FLUSH 0.9% 10 ML SYRINGE ONE (13:38)
[2018-01-08] MEDS: SODIUM CHLORIDE FLUSH 0.9% 10 ML SYRINGE IVP SCH ×2 (00:07→09:20)
[2018-01-08] MEDS: oxyCOD/ACETAMIN 5 MG/325 MG TABLET PO PRN ×3 (00:07→09:24)
[2018-01-08 05:12] LABS: ALBUMIN 2.6 g/dL (3.2-5.5); ALBUMIN/GLOBULIN RATIO 1.1 (1.0-2.2); ALKALINE PHOSPHATASE 37 IU/L (42-121); ALT ALANINE AMINOTRANSFERASE < 10 IU/L (10-60); AST ASPARTATE AMINOTRANSFERASE 18 IU/L (10-42); BILIRUBIN,TOTAL 0.4 mg/dL (0.2-1.0); BUN - BLOOD UREA NITROGEN 19 mg/dL (6-20); CALCIUM 8.1 mg/dL (8.5-10.3); CARBON DIOXIDE - CO2 26 mmol/L (21-32); CHLORIDE 108 mmol/L (101-111); CREATININE 0.9 mg/dL (0.4-1.0); GFR - MDRD 60 (>89); GLUCOSE 102 mg/dL (70-100); SODIUM 137 mmol/L (135-145); TOTAL PROTEIN 4.9 g/dL (6.7-8.2)
[2018-01-08 05:13] LABS: BASOPHILS # (AUTO) 0.1 10^3/uL (0.0-0.1); BASOPHILS % (AUTO) 0.8 %; EOSINOPHILS # (AUTO) 0.2 10^3/uL (0.0-0.7); EOSINOPHILS % (AUTO) 3.7 %; HGB - HEMOGLOBIN 9.4 g/dL (12.0-16.0); LYMPHOCYTES # (AUTO) 0.8 10^3/uL (1.5-3.5); LYMPHOCYTES % (AUTO) 12.5 %; MEAN CORPUSCULAR HEMOGLOBIN 31.6 pg (27.0-31.0); MEAN CORPUSCULAR HGB CONC 33.5 g/dL (32.0-36.0); MEAN CORPUSCULAR VOLUME 94.3 fL (81.0-99.0); MEAN PLATELET VOLUME 8.4 fL (7.9-10.8); MONOCYTES # (AUTO) 0.4 10^3/uL (0.0-1.0); MONOCYTES % (AUTO) 6.9 %; NEUTROPHILS # (AUTO) 4.6 10^3/uL (1.5-6.6); NEUTROPHILS % (AUTO) 76.1 %; PLT - PLATELET COUNT 155 10^3/uL (130-450); RED BLOOD COUNT 2.99 10^6/uL (4.20-5.40); RED CELL DISTRIBUTION WIDTH 13.3 % (12.0-15.0)
[2018-01-08 05:23] VITALS: BP 140/63
[2018-01-08] MEDS: LEVOTHYROXINE 25 MCG TABLET PO SCH (06:09)
[2018-01-08] MEDS: ASPIRIN 325 MG TABLET PO SCH (09:18)
[2018-01-08] MEDS: FAMOTIDINE 20 MG TABLET PO SCH (09:19)
[2018-01-08] MEDS: POLYETHYLENE GLYCOL 3350 17 GM PACKET PO SCH (09:19)
--- NOTE | 2018-01-08 10:49 | Discharge Plan ---
"Discharge Plan for SNF / VENICE - DC Plan and Transition Orders Disposition: 03 SNF DC/Xfer Condition: Stable SNF Transition Orders: Admit to: [[facility]] under the care of [Doctor Navarrete] Discharge Diagnosis: [closed right hip fracture, hypothyroidism] Medicare Certification: I certify that [facility] care is medically necessary on a continuing basis for any of the conditions for which she/he is receiving care during hospitalization. Notify PCP of admission and forward orders to primary provider for signature. Weight on admission and [50kg]. Call PCP immediately if weight increases by [4 ] pounds or if patient develops dyspnea, chest pain/tightness or edema. House Bowel Program: [Yes] If no BM after 2 days, nurse may give M.O.M. 30ml PO PRN and /or ducolax Supp 1 TN and /or ROSMERY 250mg P.O., and/or senna 1-2 tabs PO. On day 3 nurse may give repeat above order until residents constipation is resolved. Immunizations: Annual Influenza Vaccine: [Yes]. (between Jul 02 and January 29.) Unless allergy or already given Two-Step PPD: [Yes] per [facility] [id number] or appropriate documentation of approved exceptions Treatments & Other Orders: [May see Dr. Navarrete as arrive to [facility], continue walker ambulation, weight bearing as tolerated on right, follow up in orthopedic office in 10-14 days for marilynn out and X-ray] Oxygen Orders: [n] Lab Tests or X-Rays Orders: [CBC in 2-3 days, X-ray as the above] Orthopedic Orders: [as above]. Medications: PLEASE REFER TO THE DISCHARGE MEDICATION LIST. Insulin Orders? [No] Diagnosis: Diabetes Initiate hypo and hyperglycemia protocols for BG <70 and BG >375. May check BG prn for signs/symptoms of dysglycemia. Frequency of BG checks: [AC/Meal/HS] Basal Insulin: [] Lantus 100 units / ml inject subq as follows: [] [] Other: [] Correction Insulin: - Select the type of insulin below [Choose: Novolog/Humalog]100 units /ml insulin inject subq per orders indicate below [] LOW DOSE [] MODERATE DOSE [] MODERATE/HIGH DOSE [] HIGH DOSE GB UNITS GB UNITS GB UNITS GB UNITS 61-140 0 UNITS 61-140 0 UNITS 61-140 0 UNITS 61-140 0 UNITS 141-175 1 UNITS 141-175 1 UNITS 141-175 2 UNITS 141-175 3 UNITS 176-225 2 UNITS 176-225 3 UNITS 176-225 4 UNITS 176-225 5 UNITS 226-275 3 UNITS 226-275 5 UNITS 226-275 6 UNITS 226-275 7 UNITS 276-325 4 UNITS 276-325 7 UNITS 276-325 8 UNITS 276-325 9 UNITS 326-375 5 UNITS 326-375 9 UNITS 326-375 10 UNITS 326-375 11 UNITS >375 CONTACT MD >375 CONTACT MD >375 CONTACT MD >375 CONTACT MD Custom Dosing: [Choose: None/Novolog/Humalog] 100 units/ml Insulin inject subq as follows: GB Units 61-140 [] Units 141-175 [] Units 176-225 [] Units 226-275 [] Units 276-325 []Units 326-375 [] Units >375 Contact MD Allergies and Adverse Reactions: Allergies Allergy/AdvReac Type Severity Reaction Status Date / Time No Known Drug Allergies Allergy Verified 01/04/18 14:48 - Medications New Prescriptions: oxyCODONE/ACET 5/325 [Percocet 5 mg/325 mg] 1 tab PO Q4HR PRN #20 tablet PRN Reason: Pain Aspirin [Rich] 325 mg PO BIDWM #14 tablet Famotidine [Pepcid] 20 mg PO DAILY #7 tablet - Diet Type: Geriatric Texture: Regular Liquids: Thin May have monthly special meal: Yes - Therapies | Activity Therapy: Evaluation | Treat if indicated: PT, OT Rehabilitation Potential: Maximize functional status Activity: Activity as Tolerated Assistance Devices: Walker Additional Instructions: May see Dr. Navarrete as arrive to [facility], continue walker ambulation, weight bearing as tolerated on right, follow up in orthopedic office in 10-14 days for marilynn out and X-ray Follow Up: May see Dr. Navarrete as arrive to [facility], continue walker ambulation, weight bearing as tolerated on right, follow up in orthopedic office in 10-14 days for marilynn out and X-ray"
--- NOTE | 2018-01-08 11:14 | DISCHARGE SUMMARY ---
"Discharge Summary Discharge Date: 01/08/18 Discharging Provider: HIGGINS Primary Care Provider: Omaira Ruiz Condition at Discharge: Stable Discharge Disposition: SNF DC/Xfer Discharge Facility Name: [facility] - DIAGNOSES Admission Diagnoses: (1) Closed right hip fracture (2) Hypothyroidism Discharge Diagnoses with Status of Each Condition: (1) Closed right hip fracture pt is doing well with PT and walk with walker. Orthopedics and PT/OT recommend pt to be D/C to SNF for continuing of strength (2) Hypothyroidism stable, continue home meds - HPI History of Present Illness: refer from my HPI on 01/04/18 as the following: Ms. Aguilar is 82-year-old female with a past medical history of hypothyroidism, who present ER for right hip injury. Pt report she was the parking lot of a grocery store. Her shopping cart was starting to run. She tried to grasp and radha the shopping cart but fall and hit the right hip at ground. When she moves her right leg she feel very pain. No pain when she rest her right leg. Pt denies other injury. Denies other complaints. Lab test in ER is unremarkable. Xray of hip reveals nondisplaced intertrochanteric fracture of the right femur. Orthopedics was consulted. pt will have surgery tomorrow. - CONSULTS | PROCEDURES Consultations: Orthopetics Procedures: Closed reduction and short interTan nailing of right hip fracture - HOSPITAL COURSE Hospital Course: Pt was admitted for the fall and hip fracture. Pt had Closed reduction and short interTan nailing of right hip fracture operated by Orthopedics. Pt continue to have PT/OT evaluation and treatment. Pt has been doing well after procedure. Pt is recommended by surgeon and PT/OT to SNF. Aspirin is prescribed for another week for DVT prophylaxis - ALLERGIES Allergies/Adverse Reactions: Allergies Allergy/AdvReac Type Severity Reaction Status Date / Time No Known Drug Allergies Allergy Verified 01/04/18 14:48 - MEDICATIONS Home Medications: Ambulatory Orders Medication Instructions Recorded Confirmed Calcium/Magnesium/Vitamin D3 1 each PO DAILY 01/04/18 01/04/18 [Trevor-Mag Complex 300-150 mg Tab] Cholecalciferol (Vitamin D3) 5,000 unit PO DAILY 01/04/18 01/04/18 [Vitamin D3] Cyanocobalamin (Vitamin B-12) 500 mcg SL DAILY 01/04/18 01/04/18 [Vitamin B-12 (500 mcg sublingual)] Levothyroxine [Synthroid] 25 mcg PO DAILY 01/04/18 01/04/18 Aspirin [Rich] 325 mg PO BIDWM #14 tablet 01/08/18 Famotidine [Pepcid] 20 mg PO DAILY #7 tablet 01/08/18 oxyCODONE/ACET 5/325 [Percocet 5 1 tab PO Q4HR PRN #20 tablet 01/08/18 mg/325 mg] - PHYSICAL EXAM AT DISCHARGE General Appearance: positive: No acute distress, Alert. negative: Lethargic Eyes Bilateral: positive: Normal inspection, PERRL, No lid inflammation, Conjunctivae nml ENT: positive: ENT inspection nml, Pharynx nml, No signs of dehydration. negative: Purulent nasal drainage, Pharyngeal erythema, Oral lesions Neck: positive: Nml inspection, Thyroid nml, No JVD, Trachea midline. negative : Thyromegaly, Lymphadenopathy (R), Lymphadenopathy (L), Stiff neck, Carotid bruit, Swelling/bruising, Tracheal deviation Respiratory: positive: Chest non-tender, No respiratory distress, Breath sounds nml. negative: Wheezes, Rales, Rhonchi Cardiovascular: positive: Regular rate & rhythm, No murmur, No gallop. negative : Irregularly irregular, Extrasystoles, Tachycardia, Bradycardia, JVD present, Systolic murmur, Diastolic murmur Peripheral Pulses: positive: 2+ Abdomen: positive: Non-tender, No organomegaly, Nml bowel sounds. negative: No distention, Guarding, Rebound Back: positive: Nml inspection. negative: CVA tenderness (R), CVA tenderness (L ) Skin: positive: Color nml, No rash, Warm, Dry. negative: Cyanosis, Diaphoresis , Pallor Extremities: positive: Non-tender, Full ROM, Nml appearance. negative: Calf tenderness, Joint swelling, Yojana's sign/cords Neurologic/Psychiatric: positive: Oriented x3, Sensation nml, Mood/affect nml. negative: Sensory loss, Facial droop, Slurred/abnml speech, Depressed mood/ affect - LABS Result Diagrams: 01/08/18 04:40 01/08/18 04:40 - FOLLOW UP Follow Up: May see Dr. Navarrete as arrive to [facility], and have CBC in 2-3 days, continue walker ambulation, weight bearing as tolerated on right, follow up in orthopedic office in 10-14 days for marilynn out and X-ray - TIME SPENT Time Spent in Discharge (Minutes): 40"
== END 2018-01-08 12:55 | DRG 482 ==
LOC: EDUNIT# → ED 14:39 → MS3 16:30
PROVIDERS: ADMIT Nurse Practitioner Gerontology; ATTEND Nurse Practitioner Gerontology
PROC: 0QS634Z Reposition Right Upper Femur with Internal Fixation Device, Percutaneous Approach (ICD-10-PCS; principal; 2018-01-05 07:30)
DX: S72.144A Nondisplaced intertrochanteric fracture of right femur, initial encounter for closed fracture (principal); W18.30XA Fall on same level, unspecified, initial encounter; Y92.481 Parking lot as the place of occurrence of the external cause; E03.9 Hypothyroidism, unspecified
CPT/HCPCS: 20612; 36415; 51702; 80053; 81001; 81003; 83690; 83735; 84443; 84484; 85025; 87086; 96374; 99284

== ENCOUNTER 2018-01-11 08:00 | Outpatient (CLI) | payer MEDICARE, OTHER ==
[2018-01-11 16:20] LABS: BASOPHILS % (AUTO) 0.9 %; EOSINOPHILS # (AUTO) 0.1 10^3/uL (0.0-0.7); EOSINOPHILS % (AUTO) 1.9 %; HGB - HEMOGLOBIN 10.8 g/dL (12.0-16.0); LYMPHOCYTES # (AUTO) 0.5 10^3/uL (1.5-3.5); LYMPHOCYTES % (AUTO) 9.5 %; MEAN CORPUSCULAR HEMOGLOBIN 31.7 pg (27.0-31.0); MEAN CORPUSCULAR HGB CONC 33.5 g/dL (32.0-36.0); MEAN CORPUSCULAR VOLUME 94.4 fL (81.0-99.0); MEAN PLATELET VOLUME 8.1 fL (7.9-10.8); MONOCYTES # (AUTO) 0.4 10^3/uL (0.0-1.0); MONOCYTES % (AUTO) 7.5 %; NEUTROPHILS # (AUTO) 4.2 10^3/uL (1.5-6.6); NEUTROPHILS % (AUTO) 80.2 %; PLT - PLATELET COUNT 275 10^3/uL (130-450); RED BLOOD COUNT 3.42 10^6/uL (4.20-5.40); RED CELL DISTRIBUTION WIDTH 12.9 % (12.0-15.0); WHITE BLOOD COUNT 5.2 x10^3/uL (4.8-10.8)
== END 2018-01-11 08:01 ==
LOC: LAB.R 08:00
DX: S72.011A Unspecified intracapsular fracture of right femur, initial encounter for closed fracture (principal)
CPT/HCPCS: 85025

== ENCOUNTER 2018-02-25 10:34 | Outpatient (CLI) | payer MEDICARE, OTHER ==
[2018-02-25 11:33] LABS: BASOPHILS % (AUTO) 0.5 %; EOSINOPHILS % (AUTO) 0.3 %; HGB - HEMOGLOBIN 13.3 g/dL (12.0-16.0); LYMPHOCYTES # (AUTO) 0.7 10^3/uL (1.5-3.5); LYMPHOCYTES % (AUTO) 11.2 %; MEAN CORPUSCULAR HEMOGLOBIN 32.5 pg (27.0-31.0); MEAN CORPUSCULAR HGB CONC 34.1 g/dL (32.0-36.0); MEAN CORPUSCULAR VOLUME 95.2 fL (81.0-99.0); MONOCYTES # (AUTO) 0.3 10^3/uL (0.0-1.0); MONOCYTES % (AUTO) 4.5 %; NEUTROPHILS # (AUTO) 5.5 10^3/uL (1.5-6.6); NEUTROPHILS % (AUTO) 83.5 %; PLT - PLATELET COUNT 255 10^3/uL (130-450); RED BLOOD COUNT 4.09 10^6/uL (4.20-5.40); RED CELL DISTRIBUTION WIDTH 13.4 % (12.0-15.0); WHITE BLOOD COUNT 6.6 x10^3/uL (4.8-10.8)
[2018-02-25 11:49] LABS: ALBUMIN/GLOBULIN RATIO 1.3 (1.0-2.2); BILIRUBIN,TOTAL 0.6 mg/dL (0.2-1.0); CREATININE 0.9 mg/dL (0.4-1.0); TOTAL PROTEIN 7.1 g/dL (6.7-8.2)
[2018-02-25 12:19] LABS: THYROID STIMULATING HORMONE 2.3 uIU/mL (0.34-5.60)
--- NOTE | 2018-02-25 12:19 | CT Report ---
CT BRAIN WITHOUT CONTRAST: 02/25/2018 CLINICAL INDICATION: Fall, hypersomnia, delirium. TECHNIQUE: Axial CT images of the brain were obtained without intravenous contrast. No previous CT is available for comparison. FINDINGS: The ventricles and sulci demonstrate symmetric enlargement, compatible with atrophy. The basilar cisterns are patent. There is no evidence of hemorrhage, mass effect, or midline shift. The visualized orbital contents and paranasal sinuses are unremarkable. IMPRESSION: ATROPHY. NO EVIDENCE OF HEMORRHAGE OR MASS EFFECT. CT DOSE REDUCTION STATEMENT In accordance with CT protocol optimization, one or more of the following dose reduction techniques were utilized for this exam: automated exposure control, adjustment of mA and/or KV based on patient size, or use of iterative reconstructive technique. TD: 02/25/2018 12:18
[2018-02-25 12:20] LABS: FREE T4 (FREE THYROXINE) 1.19 ng/dL (0.58-1.64)
== END 2018-02-25 10:35 | disposition home or self-care (01) ==
LOC: LAB 10:34
PROVIDERS: ATTEND Internal Medicine
DX: G31.9 Degenerative disease of nervous system, unspecified (principal); G47.10 Hypersomnia, unspecified; F51.8 Other sleep disorders not due to a substance or known physiological condition; E03.9 Hypothyroidism, unspecified; E28.39 Other primary ovarian failure; L85.0 Acquired ichthyosis
CPT/HCPCS: 36415; 70450; 80053; 82607; 84439; 84443; 84481; 85025

== ENCOUNTER 2019-06-08 22:19 | Outpatient (CLI) | payer MEDICARE, OTHER | END 2019-06-08 22:20 | disposition critical access hospital (66) | LOC: EMS 22:19 | PROVIDERS: ATTEND Surgery | DX: M25.552 Pain in left hip (principal); W01.0XXA Fall on same level from slipping, tripping and stumbling without subsequent striking against object, initial encounter; Y92.000 Kitchen of unspecified non-institutional (private) residence as the place of occurrence of the external cause | CPT/HCPCS: A0425; A0429 ==

== ENCOUNTER 2019-06-08 23:01 | Inpatient (IN) | payer MEDICARE, OTHER ==
--- NOTE | 2019-06-08 23:07 | ED Physician Documentation ---
PD HPI LOWER EXT INJURY - Stated complaint Stated Complaint: GLF/HIP PAIN - Chief complaint Chief Complaint: Trauma Ext - History obtained from History obtained from: Patient - History of Present Illness PD HPI LOW EXT INJURY LOCATION: Left, Hip Type of injury: Fall (She states she spilled some orange juice on the floor and her slipper has a slick bottom and she slid and fell to her left side. She denies striking her head or ribs. She complained of pain in the left hip. She was unable to get up because of the discomfort. EMS was called and brought her here.) Where injury occurred: Home Timing - onset: How many minutes ago (30), Today Timing - details: Abrupt onset, Still present Worsened by: Moving, Palpating Associated symptoms: No: Weakness, Numbness Contributing factors: Prior ortho surgery (fracture right hip few years ago). No: Anticoagulated Recently seen: Not recently seen Review of Systems Constitutional: denies: Fever, Chills Nose: denies: Rhinorrhea / runny nose, Congestion Throat: denies: Sore throat Cardiac: denies: Chest pain / pressure, Palpitations Respiratory: denies: Dyspnea, Cough GI: denies: Abdominal Pain, Nausea, Vomiting, Bloody / black stool Skin: denies: Rash, Lesions Neurologic: denies: Focal weakness, Numbness, Confused, Altered mental status, Headache, Head injury Endocrine: denies: Weight loss, Easy bruising / bleeding PD PAST MEDICAL HISTORY - Past Medical History Endocrine/Autoimmune: HyPOthyroidism - Past Surgical History 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, 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 - Present Medications Home Medications: Ambulatory Orders Medication Instructions Recorded Confirmed Levothyroxine [Synthroid] 25 mcg PO DAILY 01/04/18 06/08/19 - Allergies Allergies/Adverse Reactions: Allergies Allergy/AdvReac Type Severity Reaction Status Date / Time No Known Drug Allergies Allergy Verified 06/08/19 23:06 - Social History Does the pt smoke?: No Smoking Status: Never smoker Does the pt drink ETOH?: No Does the pt have substance abuse?: No - Immunizations Immunizations are current?: Yes - POLST POLST Status: Full Code PD ED PE NORMAL - Vitals Vital signs reviewed: Yes - General General: Alert and oriented X 3, No acute distress, Well developed/nourished - HEENT HEENT: Atraumatic - Neck Neck: Supple, no meningeal sign, No bony TTP, No adenopathy - Cardiac Cardiac: RRR, No murmur - Respiratory Respiratory: Clear bilaterally - Abdomen Abdomen: Soft, Non tender - Female Female : Deferred - Rectal Rectal: Deferred - Back Back: No spinal TTP - Extremities Extremities: No deformity (She has pain at the left hip with attempted rotation and also impaction. There is no obvious deformity. Low back is not tender.), No edema, No calf tenderness / cord - Neuro Neuro: Alert and oriented X 3, No motor deficit, No sensory deficit, Normal speech Results - Vitals Vitals: Vital Signs - 24 hr 06/08/19 06/08/19 06/09/19 23:01 23:08 00:57 Temperature 36.5 C Heart Rate 65 63 65 Respiratory 16 16 17 Rate Blood Pressure 151/63 H 151/63 H 153/65 H O2 Saturation 97 100 96 Oxygen O2 Source Room air - Rads (name of study) left hip xray Radiology: Prelim report reviewed (no fracture), EMP read contemporaneously (I believe there is a nondisplaced femoral neck impaction fracture but the radiology reading is negative. Will get CT scan.), See rad report pelvic CT Radiology: Prelim report reviewed (Impacted nondisplaced left femoral neck fracture), EMP read contemporaneously, See rad report PD MEDICAL DECISION MAKING - ED course Complexity details: reviewed results, considered differential, d/w patient, d/w it systems analyst consultant (Hospitalist) Departure - Departure Disposition: 66 [facility] DC/Xfer Clinical Impression: Fall from slip, trip, or stumble Qualifiers: Encounter type: initial encounter Qualified Code(s): W01.0XXA - Fall on same level from slipping, tripping and stumbling without subsequent striking against object, initial encounter Femoral neck fracture Qualifiers: Encounter type: initial encounter Fracture type: closed Laterality: left Qualified Code(s): S72.002A - Fracture of unspecified part of neck of left femur, initial encounter for closed fracture Condition: Stable Record reviewed to determine appropriate education?: Yes Discharge Date/Time: 06/09/19 02:35
--- NOTE | 2019-06-08 23:49 | XRAY Report ---
Reason: fall to left side; hip hurts Procedure Date: 06/08/2019 Accession Number: [id number] / [id number] Procedure: XR - Hip w/Pelvis 2-3V LT CPT Code: FULL RESULT: EXAM: LEFT HIP RADIOGRAPHY EXAM DATE: 06/08/2019 11:34 PM. CLINICAL HISTORY: Fall to left side; hip hurts. COMPARISON: HIP 2 VIEW RT 03/22/2018 9:53 AM. TECHNIQUE: 3 views. FINDINGS: Bones: Normal. No fractures or bone lesion. Joints: There are degenerative changes of the hips evidenced by small marginal osteophytes. There is a dynamic hip screw on the right with a short intramedullary nail shaft of the right femur. Soft Tissues: Normal. No soft tissue swelling. IMPRESSION: 1. No evidence for acute fracture is no dislocations. 2. Degenerative changes of the hips. RADIA
--- NOTE | 2019-06-09 01:18 | CT Report ---
Reason: possible left hip fracture Procedure Date: 06/09/2019 Accession Number: [id number] / [id number] Procedure: CT - PELVIS WO CPT Code: FULL RESULT: EXAM: CT BONY PELVIS WITHOUT CONTRAST EXAM DATE: 06/09/2019 12:47 AM. CLINICAL HISTORY: Possible left hip fracture. COMPARISON: HIP W/PELVIS 2-3V LT 06/08/2019 11:15 PM. TECHNIQUE: Thin-section axial images were acquired of the pelvis without contrast. Post-processing: Coronal and sagittal reformats. Other: None. In accordance with CT protocol optimization, one or more of the following dose reduction techniques were utilized for this exam: automated exposure control, adjustment of mA and/or KV based on patient size, or use of iterative reconstructive technique. FINDINGS: Bones: Impacted, mildly angulated left femoral neck fracture. Previous dynamic compression screw and short IM chino fixation of the right hip. Sacroiliac Joints: No widening, erosions, or sclerosis. Symphysis Pubis: Chondrocalcinosis. Right Hip: Mild osteoarthritis. Left Hip: Mild osteoarthritis. Musculature: Normal. No fatty atrophy. Pelvic Cavity: The visualized bowel, bladder, and reproductive organs are unremarkable on this noncontrast exam. Other: No lymphadenopathy. No free air or free fluid. The other visualized soft tissues are unremarkable. IMPRESSION: Impacted, minimally angulated left femoral neck fracture. Mild osteoarthritis. Previous right hip fracture fixation. RADIA
[2019-06-09] MEDS ORDERED: MORPHINE 2 MG/ML CARPUJECT IVP STA (01:38)
[2019-06-09] MEDS ORDERED: SODIUM CHLORIDE 0.9% 1,000 ML IV ONE (01:38)
[2019-06-09] MEDS ORDERED: SODIUM CHLORIDE FLUSH 0.9% 10 ML SYRINGE IVP PRN ×2 (01:42→14:54)
[2019-06-09] MEDS ORDERED: ONDANSETRON ODT 4 MG TABLET TL PRN (01:42)
[2019-06-09] MEDS ORDERED: SODIUM CHLORIDE 0.9% 1,000 ML IV SCH (02:00)
[2019-06-09 02:14] LABS: BASOPHILS % (AUTO) 0.2 %; EOSINOPHILS # (AUTO) 0.1 10^3/uL (0.0-0.7); EOSINOPHILS % (AUTO) 0.8 %; HGB - HEMOGLOBIN 14.1 g/dL (12.0-16.0); LYMPHOCYTES # (AUTO) 0.7 10^3/uL (1.5-3.5); MEAN CORPUSCULAR HEMOGLOBIN 31.8 pg (27.0-31.0); MEAN CORPUSCULAR HGB CONC 32.9 g/dL (32.0-36.0); MEAN CORPUSCULAR VOLUME 96.6 fL (81.0-99.0); MEAN PLATELET VOLUME 9.8 fL (7.9-10.8); MONOCYTES # (AUTO) 0.6 10^3/uL (0.0-1.0); NEUTROPHILS # (AUTO) 7.1 10^3/uL (1.5-6.6); NEUTROPHILS % (AUTO) 83.5 %; PLT - PLATELET COUNT 215 10^3/uL (130-450); RED BLOOD COUNT 4.43 10^6/uL (4.20-5.40); RED CELL DISTRIBUTION WIDTH 12.5 % (12.0-15.0); WHITE BLOOD COUNT 8.5 x10^3/uL (4.8-10.8)
[2019-06-09 02:19] LABS: ALBUMIN 3.7 g/dL (3.2-5.5); ALBUMIN/GLOBULIN RATIO 1.1 (1.0-2.2); BILIRUBIN,TOTAL 0.6 mg/dL (0.2-1.0); CALCIUM 9.2 mg/dL (8.5-10.3); CREATININE 0.9 mg/dL (0.4-1.0); TOTAL PROTEIN 7.1 g/dL (6.7-8.2)
--- NOTE | 2019-06-09 02:23 | HISTORY & PHYSICAL EXAMINATION ---
Chief Complaint - Chief Complaint Chief Complaint: left hip pain s/p mechanical fall History of Present Illness - Admitted From Admitted From:: [facility] ED - History Obtained From Records Reviewed: yes History obtained from: patient - History of Present Illness HPI Comment/Other: Patient seen and examined on 06/09/19 at 02:00 am Patient is an 83 y/o female who presented to the ED after a mechanical fall at home. She was getting juice from the refrigerator when she slipped on water on the floor, lost her balance and fell. She did not hit her head or loss her balance. She was brought in by EMS. Work up in the ED included xray of the hips and a CT of the pelvis which showed a minimally displaced angulated left femoral neck fractured. She is currently resting comfortably in bed. She denies chest pain, NATANAEL, abd pain, n/v, fever or chills. She rates her hip pain as 4/10 currently. She was last admitted to the hospital last year. She had a right hip replacement at that time. She is being admitted for further treatment. 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 Pt had one son and one daughter. She denies any significant family history of any significant medical problems Social History Notes: pt denies cigarette smoking, alcohol and drug abuse. - Substance History Use: Uses substance without health or social issues: NONE - POLST Patient has POLST: No POLST Status: Full Code Meds/Allgy - Home Medications Home Medications: Ambulatory Orders Medication Instructions Recorded Confirmed Levothyroxine [Synthroid] 25 mcg PO DAILY 01/04/18 06/08/19 - Allergies Allergies/Adverse Reactions: Allergies Allergy/AdvReac Type Severity Reaction Status Date / Time No Known Drug Allergies Allergy Verified 06/08/19 23:06 Review of Systems - Constitutional Constitutional: denies: Fatigue, Fever, Chills, Weakness - Eyes Eyes: denies: Blurred vision, Vision loss, Dipolpia - Ears, Nose & Throat Ears, Nose & Throat: denies: Vertigo, Nasal pain, Nasal discharge, Sore throat, Hoarseness - Cardiovascular Cariovascular: denies: Irregular heart rate, Palpitations, Chest pain, Edema, Lightheadedness, Syncope, Exertional dyspnea - Respiratory Respiratory: denies: Cough, Sputum production, Wheezing, SOB at rest, SOB with exertion - Gastrointestinal Gastrointestinal: denies: Abdominal pain, Abdominal distention, Constipation, Nausea, Vomiting - Genitourinary Genitourinary: denies: Frequency, Urgency, Hematuria - Musculoskeletal Musculoskeletal: reports: Joint pain (left hip). denies: Back pain, Muscle aches - Integumentary Integumentary: denies: Rash, Pruritis, Dryness - Neurological Neurological: denies: General weakness, Focal weakness, Headache, Dizziness, Numbness - Psychiatric Psychiatric: denies: Depression, Anxiety - Endocrine Endocrine: denies: Polyuria, Polydypsia - Hematologic/Lymphatic Hematologic/Lymphatic: denies: Anemia, Bruising, Petechiae Prior Level of Functionality: She is independent of activities of daily living Exam - Vital Signs Vital Signs: Vital Signs x48h Temp Pulse Resp BP Pulse Ox 06/09/19 01:58 74 18 164/62 H 95 06/09/19 00:57 65 17 153/65 H 96 06/08/19 23:08 63 16 151/63 H 100 06/08/19 23:01 36.5 C 65 16 151/63 H 97 - Physical Exam General Appearance: positive: Alert, Moderate distress Eyes Bilateral: positive: Normal inspection, PERRL, EOMI ENT: positive: ENT inspection nml Neck: positive: Nml inspection, No JVD, Trachea midline Respiratory: positive: Chest non-tender, No respiratory distress, Breath sounds nml. negative: Wheezes, Rales, Rhonchi Cardiovascular: positive: Regular rate & rhythm, No murmur Abdomen: positive: Non-tender, Nml bowel sounds, No distention. negative: Guarding, Rebound Back: positive: Nml inspection Skin: positive: No rash, Warm, Dry. negative: Skin rash, Decubitus Extremities: positive: Nml appearance, No pedal edema. negative: Full ROM Neurologic/Psychiatric: positive: Oriented x3, CN's nml (2-12), Mood/affect nml Conclusion/Plan - Problem List (1) Fracture of femoral neck, left, closed Conclusion/Plan: NPO except for meds IV hydration. Pain medication Will consult orthopedic (Dr Mooney) in the am for possible surgery Patient is completely independent of activities of daily living No significant change on EKG when compared to previous telemetry strips Revised cardiac risk index: Risk of cardiac is 1.0% Risk of NH is 1.3% Patient is medically optimized for surgery (2) Hypothyroidism Conclusion/Plan: Continue home dose of synthroid - Lab Results Fish Bones: 06/09/19 01:49 06/09/19 01:49 Core Measures - Anticipated LOS I expect patient to be DC'd or transferred within 96 hours.: Yes - DVT/VTE - Prophylaxis VTE/DVT Device ordered at admit?: Yes VTE/DVT Prophylaxis med ordered at admit?: Yes
--- NOTE | 2019-06-09 02:34 | XRAY Report ---
Reason: pre-op eval Procedure Date: 06/09/2019 Accession Number: [id number] / [id number] Procedure: XR - Chest 1 View X-Ray CPT Code: 21308 FULL RESULT: EXAM: CHEST RADIOGRAPHY EXAM DATE: 06/09/2019 02:17 AM. CLINICAL HISTORY: Hip fracture. Preoperative exam for fracture repair. COMPARISON: None. TECHNIQUE: 1 view. FINDINGS: Lungs/Pleura: Large lung volumes. Pulmonary vascularity is upper normal. No alveolar consolidation or pleural effusion seen. No pneumothorax. Mediastinum: Within exam limitations, heart is mildly enlarged. Other: Osteopenia. IMPRESSION: 1. Large lung volumes with mild cardiomegaly and borderline pulmonary vascularity. RADIA
[2019-06-09 03:22] LABS: BILIRUBIN,URINE NEGATIVE (NEGATIVE); CLARITY,URINE CLEAR (CLEAR); GLUCOSE, URINE (UA) NEGATIVE (NEGATIVE); KETONES,URINE (UA) NEGATIVE (NEGATIVE); LEUKOCYTE ESTERASE, URINE NEGATIVE (NEGATIVE); NITRITE,URINE NEGATIVE (NEGATIVE); OCCULT BLOOD,URINE NEGATIVE (NEGATIVE); PROTEIN,URINE NEGATIVE (NEGATIVE); UROBILINOGEN,URINE 0.2 (NORMAL) E.U./dL (NORMAL)
[2019-06-09] MEDS: oxyCODONE 5 MG TABLET PO PRN ×2 (05:40→12:08)
[2019-06-09] MEDS: ACETAMINOPHEN 325 MG TABLET PO PRN ×2 (05:40→12:07)
[2019-06-09] MEDS: POLYETHYLENE GLYCOL 3350 17 GM PACKET PO SCH (08:01)
[2019-06-09] MEDS ORDERED: SODIUM CHLORIDE FLUSH 0.9% 10 ML SYRINGE IVP SCH (09:00)
--- NOTE | 2019-06-09 12:24 | ANESTHESIA ---
Pre-Anesthesia VS, & Labs - Diagnosis left hip fracture - Procedure left hip pinning Vital Signs: Temp Pulse Resp BP Pulse Ox 36.9 C 61 16 133/55 H 93 06/09/19 11:30 06/09/19 11:30 06/09/19 11:30 06/09/19 11:30 06/09/19 11:30 Height 5 ft Weight (kg) 47 kg Body Mass Index 20.2 - NPO >8 hours - Is Patient ?: Not Applicable - Lab Results Current Lab Results: Laboratory Tests 06/09/19 01:49: Sodium 142, Potassium 3.7, Chloride 104, Carbon Dioxide 28, Anion Gap 10.0, BUN 29 H, Creatinine 0.9, Estimated GFR (MDRD) 60 L, Glucose 117 H, Calcium 9.2, Total Bilirubin 0.6, AST 21, ALT 20, Alkaline Phosphatase 67, Total Protein 7.1, Albumin 3.7, Globulin 3.4, Albumin/Globulin Ratio 1.1, Lipase 45 06/09/19 01:49: WBC 8.5, RBC 4.43, Hgb 14.1, Hct 42.8, MCV 96.6, MCH 31.8 H, MCHC 32.9, RDW 12.5, Plt Count 215, MPV 9.8, Neut # (Auto) 7.1 H, Lymph # (Auto) 0.7 L, Jerauld # (Auto) 0.6, Eos # (Auto) 0.1, Baso # (Auto) 0.0, Absolute Nuc leated RBC 0.00, Nucleated RBC % 0.0 Fish Bones: 06/09/19 01:49 06/09/19 01:49 Home Medications and Allergies Active Medications Acetaminophen (Tylenol) 650 mg PO Q4HR PRN PRN Reason: Pain 1 to 4 Last Admin: 06/09/19 12:07 Dose: 650 mg Sodium Chloride (Normal Saline 0.9%) 1,000 mls @ 75 mls/hr IV .[id number] GINA Ondansetron HCl (Zofran Odt) 4 mg TL Q6HR PRN PRN Reason: Nausea / Vomiting Oxycodone HCl (Roxicodone) 5 mg PO Q4HR PRN PRN Reason: Pain 5 to 7 Last Admin: 06/09/19 12:08 Dose: 5 mg Polyethylene Glycol (Miralax) 17 gm PO DAILY GINA Last Admin: 06/09/19 08:01 Dose: Not Given Sodium Chloride (Normal Saline Flush 0.9%) 10 ml IVP PRN PRN PRN Reason: NEEDED PER PROVIDER ORDERS Sodium Chloride (Normal Saline Flush 0.9%) 10 ml IVP 0100,0900,1700 GINA Levothyroxine [Synthroid] 25 mcg PO QDAC 01/04/18 Allergies/Adverse Reactions: Allergies Allergy/AdvReac Type Severity Reaction Status Date / Time No Known Drug Allergies Allergy Verified 06/08/19 23:06 Anes History & Medical History - Anesthetic History Anesthesia Complications: reports: No previous complications Family history of Anesthesia Complications: Denies Family history of Malignant Hyperthermia: Denies - Medical History Cardiovascular: reports: None Pulmonary: reports: None Gastrointestinal: reports: None Urinary: reports: None Neuro: reports: None Musculoskeletal: reports: None Endocrine/Autoimmune: reports: HyPOthyroidism Blood Disorders: reports: None Skin: reports: None Smoking Status: Never smoker - Surgical History Gynecologic: section, 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 Orthopedic: Hip replacement (right hip) Exam General: Alert Dental: Other (cap) Mouth Openin Fingerbreadth Neck Mobility: Normal Mallampati classification: III Thyromental Distance: 4-6 cm Respiratory: Lungs clear Cardiovascular: Normal S1, Normal S2 Plan Anesthesia Type: General Consent for Procedure(s) Verified and Reviewed: No Code Status: Attempt Resuscitation ASA classification: 2-Mild systemic disease Is this case an emergency?: No
--- NOTE | 2019-06-09 13:14 | PROVIDER PROGRESS NOTE ---
Assessment/Plan - Problem List (1) Fracture of femoral neck, left, closed Qualifiers: Encounter type: initial encounter Qualified Code(s): S72.002A - Fracture of unspecified part of neck of left femur, initial encounter for closed fracture - Current Meds Current Meds: Current Medications Generic Name Dose Route Start Last Admin Trade Name Freq PRN Reason Stop Dose Admin Acetaminophen 650 mg 06/09/19 01:42 06/09/19 12:07 Tylenol PO 650 mg Q4HR PRN Administration Pain 1 to 4 Oxycodone HCl 5 mg 06/09/19 01:42 06/09/19 12:08 Roxicodone PO 5 mg Q4HR PRN Administration Pain 5 to 7 Polyethylene Glycol 17 gm 06/09/19 09:00 06/09/19 08:01 Miralax PO Not Given DAILY GINA - Lab Result Fish Bone Diagrams: 06/09/19 01:49 06/09/19 01:49 - Additional Planning My Orders: My Active Orders 06/09/19 14:00 ceFAZolin [Ancef] 1 gm Sodium Chloride 0.9% Minibag [Normal Saline 0.9% Minibag] 100 ml IV ONCE Additional Planning Notes: Patient examined. Dx and treatment options given. All questions answered. She wishes to proceed with surgical fixation of left hip fracture today. Full note dictated. Objective Vital Signs: Vital Signs - 24 hr 06/08/19 06/08/19 06/09/19 23:01 23:08 00:57 Temperature 36.5 C Heart Rate 65 63 65 Heart Rate [ Brachial] Respiratory 16 16 17 Rate Blood Pressure 151/63 H 151/63 H 153/65 H Blood Pressure [Left Brachial artery] O2 Saturation 97 100 96 06/09/19 06/09/19 06/09/19 01:58 03:00 07:20 Temperature 37.5 C 37.2 C Heart Rate 74 Heart Rate [ 74 64 Brachial] Respiratory 18 16 16 Rate Blood Pressure 164/62 H Blood Pressure 133/98 H 129/66 [Left Brachial artery] O2 Saturation 95 93 93 06/09/19 11:30 Temperature 36.9 C Heart Rate Heart Rate [ 61 Brachial] Respiratory 16 Rate Blood Pressure Blood Pressure 133/55 H [Left Brachial artery] O2 Saturation 93 Oxygen O2 Source Room air I&O (Last 24 Hrs): Intake and Output Totals x24h 06/07/19 06/08/19 06/09/19 23:59 23:59 23:59 Intake Total 1930 Output Total 1000 Balance 930 - Results Results: Laboratory Results WBC 8.5 x10^3/uL (4.8-10.8) 06/09/19 01:49 RBC 4.43 10^6/uL (4.20-5.40) 06/09/19 01:49 Hgb 14.1 g/dL (12.0-16.0) 06/09/19 01:49 Hct 42.8 % (37.0-47.0) 06/09/19 01:49 MCV 96.6 fL (81.0-99.0) 06/09/19 01:49 MCH 31.8 pg (27.0-31.0) H 06/09/19 01:49 MCHC 32.9 g/dL (32.0-36.0) 06/09/19 01:49 RDW 12.5 % (12.0-15.0) 06/09/19 01:49 Plt Count 215 10^3/uL (130-450) 06/09/19 01:49 MPV 9.8 fL (7.9-10.8) 06/09/19 01:49 Neut # (Auto) 7.1 10^3/uL (1.5-6.6) H 06/09/19 01:49 Lymph # (Auto) 0.7 10^3/uL (1.5-3.5) L 06/09/19 01:49 Bladen # (Auto) 0.6 10^3/uL (0.0-1.0) 06/09/19 01:49 Eos # (Auto) 0.1 10^3/uL (0.0-0.7) 06/09/19 01:49 Baso # (Auto) 0.0 10^3/uL (0.0-0.1) 06/09/19 01:49 Absolute Nucleated RBC 0.00 x10^3/uL 06/09/19 01:49 Nucleated RBC % 0.0 /100WBC 06/09/19 01:49 Sodium 142 mmol/L (135-145) 06/09/19 01:49 Potassium 3.7 mmol/L (3.5-5.0) 06/09/19 01:49 Chloride 104 mmol/L (101-111) 06/09/19 01:49 Carbon Dioxide 28 mmol/L (21-32) 06/09/19 01:49 Anion Gap 10.0 (6-13) 06/09/19 01:49 BUN 29 mg/dL (6-20) H 06/09/19 01:49 Creatinine 0.9 mg/dL (0.4-1.0) 06/09/19 01:49 Estimated GFR (MDRD) 60 (>89) L 06/09/19 01:49 Glucose 117 mg/dL (70-100) H 06/09/19 01:49 Calcium 9.2 mg/dL (8.5-10.3) 06/09/19 01:49 Total Bilirubin 0.6 mg/dL (0.2-1.0) 06/09/19 01:49 AST 21 IU/L (10-42) 06/09/19 01:49 ALT 20 IU/L (10-60) 06/09/19 01:49 Alkaline Phosphatase 67 IU/L (42-121) 06/09/19 01:49 Total Protein 7.1 g/dL (6.7-8.2) 06/09/19 01:49 Albumin 3.7 g/dL (3.2-5.5) 06/09/19 01:49 Globulin 3.4 g/dL (2.1-4.2) 06/09/19 01:49 Albumin/Globulin Ratio 1.1 (1.0-2.2) 06/09/19 01:49 Lipase 45 U/L (22-51) 06/09/19 01:49 Urine Color YELLOW 06/09/19 03:05 Urine Clarity CLEAR (CLEAR) 06/09/19 03:05 Urine pH 7.0 PH (5.0-7.5) 06/09/19 03:05 Ur Specific Parkin 1.010 (1.002-1.030) 06/09/19 03:05 Urine Protein NEGATIVE mg/dL (NEGATIVE) 06/09/19 03:05 Urine Glucose (UA) NEGATIVE mg/dL (NEGATIVE) 06/09/19 03:05 Urine Ketones NEGATIVE mg/dL (NEGATIVE) 06/09/19 03:05 Urine Occult Blood NEGATIVE (NEGATIVE) 06/09/19 03:05 Urine Nitrite NEGATIVE (NEGATIVE) 06/09/19 03:05 Urine Bilirubin NEGATIVE (NEGATIVE) 06/09/19 03:05 Urine Urobilinogen 0.2 (NORMAL) E.U./dL (NORMAL) 06/09/19 03:05 Ur Leukocyte Esterase NEGATIVE (NEGATIVE) 06/09/19 03:05 Ur Microscopic Review NOT INDICATED 06/09/19 03:05 Urine Culture Comments NOT INDICATED 06/09/19 03:05 - Procedures Procedures: Procedures REPOSITION RIGHT UPPER FEMUR WITH INT FIX, PERC APPROACH (01/04/18) ABX Reporting Has patient been on IV antibiotics over the past 48 hours?: No
[2019-06-09] MEDS ORDERED: ceFAZolin 2 GM in SODIUM CHLORIDE 0.9% MINIBAG 100 ML IV SCH (14:00)
[2019-06-09] MEDS ORDERED: LACTATED RINGERS 1,000 ML IV ONE (14:13)
[2019-06-09] MEDS ORDERED: BUPIVACAINE 0.25% PF 30 ML VIAL SUBQ ONE ×2 (14:14)
--- NOTE | 2019-06-09 14:16 | CONSULTATION NOTE ---
DATE OF SERVICE: 06/09/2019 Physician: Quan Mead MD REFERRING PHYSICIAN: Dr. Garcia of the hospitalist service. CHIEF COMPLAINT: "My left hip hurts." HISTORY OF PRESENT ILLNESS: The patient is an 83-year-old female who apparently slipped in her kitchen as she was getting some juice from the refrigerator landing onto her left side. She noted immediate pain to her left hip. She was unable to stand or weight bear due to pain. She did not seek immediate medical attention since she was participating in a democrat when this accident occurred. After the end of the democrat with her symptoms not improving, she was eventually taken to the emergency room here at [facility] for an evaluation of her hip. Initial x-rays were unremarkable. Because of her continued pain in the hip region, particularly with range of motion, a followup CT scan of the pelvis was obtained. This showed essentially nondisplaced, minimally impacted subcapital hip fracture on the left side. Her previous intertrochanteric right hip fracture, in which IM nailing was performed by myself a year ago, was healed. The patient denied any loss of consciousness or other injuries with the most recent accident. PHYSICAL EXAMINATION: An elderly, female lying in bed, in some mild distress. The patient has some mild tenderness on palpation around the anterior aspect of her left hip. Able to rotate her hip with only mild pain today. The patient moves her toes voluntarily without problems. Sensation intact throughout. Good capillary filling noted. RADIOLOGY REPORT: Review of x-rays that were taken on admission showed no apparent fractures on the plain x-rays. The followup CT scan of the pelvis does show an impacted, minimally displaced subcapital hip fracture on the left side. ASSESSMENT 1. Impacted, minimally displaced, left subcapital hip fracture. 2. Status post intramedullary nailing for a right intertrochanteric hip fracture - 2018. 3. Hypothyroidism. PLAN: Treatment options were explained to the patient. She wishes to proceed with surgery and surgically stabilize her left hip fracture. We will plan on doing multiple cannulated screw fixation of her fracture. The risks and benefits of surgery were explained to her, including anesthesia risks, malunion, nonunion, avascular necrosis, infection, blood loss, nerve damage, deep venous thrombosis, etc. She appears to understand these risks. All of her questions were answered. She wishes to proceed with surgery as planned. Her leg was marked. Consent was signed. TD: 06/09/2019 13:13 Revised report 06/11/19 gabrielle Garcia added Orig. signed on 06/09/19@1454 MTDD
[2019-06-09] MEDS ORDERED: BUPIVACAINE 0.25%-EPI 1:200000 PF 30 ML VIAL ONE (14:31)
[2019-06-09] MEDS ORDERED: DOCUSATE SODIUM 100 MG CAPSULE PO PRN (14:54)
[2019-06-09] MEDS ORDERED: ACETAMINOPHEN 1,000 MG/100 ML 100 ML IV PRN (14:54)
[2019-06-09] MEDS ORDERED: SENNA 8.6 MG TABLET PO PRN (14:54)
[2019-06-09] MEDS ORDERED: ONDANSETRON 4 MG/2 ML VIAL IVP PRN (14:54)
[2019-06-09] MEDS ORDERED: ACETAMINOPHEN 325 MG TABLET PO PRN (14:54)
[2019-06-09] MEDS ORDERED: PROCHLORPERAZINE 10 MG/2 ML VIAL IVP PRN (14:54)
--- NOTE | 2019-06-09 15:00 | OPERATIVE REPORT ---
Operative Report - General Admit Date: 06/09/19 Procedure Date: 06/09/19 Planned Procedure: Multiple cannulated screw fixation of left hip fracture Pre-Op Diagnosis: Impacted, minimally displaced left subcapital hip fracture Procedure Performed: Closed reduction and multiple cannulated screw fixation of left hip fracture Post Op Diagnosis: Same - Procedure Note Primary Surgeon: Jesi Mead MD Anesthesia Provider: Stanley Patel MD Anesthesia Technique: General LMA IV Fluids (mL): 600 Estimated Blood Loss (mL): 50 Urine Output (mL): 500 Complications: None
--- NOTE | 2019-06-09 15:22 | OPERATIVE REPORT ---
DATE OF SERVICE: 06/09/2019 Physician: Quan Mead MD PREOPERATIVE DIAGNOSIS: Closed impacted, minimally displaced, left subcapital hip fracture. POSTOPERATIVE DIAGNOSIS: Closed, impacted, minimally displaced, left subcapital hip fracture. PROCEDURE PERFORMED: Closed reduction and multiple cannulated screw fixation of left subcapital hip fracture. SURGEON: Quan Mead MD ANESTHESIA: General. DESCRIPTION OF PROCEDURE: The patient was taken to the operating room on the afternoon of 06/09/2019 , where she was placed under general anesthetic in the supine position without any complications. Lacey almaraz was then positioned supine, onto the fracture table. Her right unfractured extremity had the hip w idely flexed and widely abducted and held with a well leg ramirez. The fractured left lower extremity was then placed in axial traction with the leg internally rotated approximately 25 degrees. Fluoros copic views of the hip fracture were then obtained. This showed the fracture still to be slightly im pacted and in valgus alignment. Mild remanipulation of the fracture showed little change in position . This was felt to be in acceptable position. We then prepped and draped the lateral aspect of her hip in the usual fashion for our procedure. Making a small longitudinal skin incision in the proxima l thigh, we then dissected down to the proximal lateral femoral cortex. We then proceeded to insert 3 threaded-tip guide pins with our guide pin guides passing these pins through the proximal femur, fe moral neck and into the femoral head. They were advanced until they were within 3 mm of subchondral bone in either AP or lateral projections. The parallel pin guide allowed the tract of the pins to be nearly parallel. Satisfied with the position of our 3 guide pins, we then used the direct measuring guide and we determined that we would use two 85 mm length and one 90 mm length, 7.3 mm cannulated s crews from the [employer] set. All 3 screws would be a short threaded over 16 mm threads at the screw t ip. We then drilled the lateral femoral cortex were each pin penetrated the femoral cortex with the cannulated drill. We then next inserted the selected cannulated screw and placed them over the appro priate guide pin. Fluoroscopic views showed that in at least 1 view the cannulated screws were withi n about 3 mm of subchondral bone. The fracture also was in an impacted position, still with a slight valgus orientation. We accepted the position of the fracture and the position of the hardware. We then irrigated the wound out thoroughly with saline. We then closed the wound in layers using simple interrupted stitches of 2-0 Vicryl to approximate the fascia jayden layer, followed by a simple interr upted stitch of 3-0 Polysorb to approximate the subcutaneous tissues. Finally, skin marilynn used to approximate the skin edge. 12 mL of 0.25% with epinephrine was used for local anesthetic at the inci donnell site. Finally, the wound was then dressed. The patient was transferred off the fracture table and taken to the recovery room in satisfactory condition. ESTIMATED BLOOD LOSS: 50 mL REPLACEMENT: 600 mL crystalloid. INTRAOPERATIVE COMPLICATIONS: None. PLAN: The patient will start physical therapy and may go weightbearing as tolerated on this extremit y, walker ambulating. TD: 06/09/2019 15:09
--- NOTE | 2019-06-09 15:37 | XRAY Report ---
Reason: LEFT HIP PINNING Procedure Date: 06/09/2019 Accession Number: [id number] / [id number] Procedure: XR - Hip w/Pelvis 1V LT CPT Code: FULL RESULT: EXAM: FLUOROSCOPIC GUIDANCE EXAM DATE: 06/09/2019 01:28 PM. CLINICAL HISTORY: LEFT HIP PINNING. COMPARISON: HIP W/PELVIS 2-3V LT 06/08/2019 11:15 PM HIP 2 VIEW RT 03/22/2018 9:53 AM HIP W/PELVIS 2-3V RT 01/04/2018 2:50 PM. FINDINGS: Intraoperative fluoroscopic spot views show internal fixation of the previously seen subcapital fracture of the left proximal femur with three cannulated lag screws. Please see operative report for details. IMPRESSION: Fluoroscopic guidance provided for Dr. Quan Mead. Total fluoroscopy time: 28 seconds. Number of images: 2. RADIA
--- NOTE | 2019-06-09 15:49 | XRAY Report ---
Reason: LEFT HIP PINNING Procedure Date: 06/09/2019 Accession Number: [id number] / [id number] Procedure: FL - OR C-Arm Procedure CPT Code: FULL RESULT: EXAM: FLUOROSCOPIC GUIDANCE EXAM DATE: 06/09/2019 03:15 PM. CLINICAL HISTORY: LEFT HIP PINNING. COMPARISON: HIP PINNING 01/05/2018 7:52 AM. FINDINGS: 2 fluoroscopic capture images in orthogonal projections to each other demonstrate the left femoral neck traversed by 3 partially threaded cannulated screws over Robert wires. IMPRESSION: Fluoroscopic guidance provided for left hip pinning. Total fluoroscopy time: 28 seconds. Number of images: 2. RADIA
[2019-06-09] MEDS ORDERED: fentaNYL 100 MCG/2 ML VIAL IVP ONE (15:59)
[2019-06-09] MEDS ORDERED: DEXAMETHASONE 4 MG/ML VIAL IVP ONE (15:59)
[2019-06-09] MEDS ORDERED: PROPOFOL 200 MG/20 ML VIAL IVP ONE (15:59)
[2019-06-09] MEDS ORDERED: LIDOCAINE-MPF 1% 30 ML VIAL SUBQ ONE (15:59)
[2019-06-09] MEDS ORDERED: ePHEDrine 50 MG/ML VIAL IVP ONE (15:59)
[2019-06-09] MEDS: ASPIRIN 325 MG TABLET PO SCH (16:15)
[2019-06-09] MEDS: SODIUM CHLORIDE FLUSH 0.9% 10 ML SYRINGE IVP SCH ×2 (16:15→23:49)
[2019-06-09] MEDS: MORPHINE 2 MG/ML CARPUJECT IVP PRN ×2 (17:50→23:48)
[2019-06-09] MEDS: SODIUM CHLORIDE 0.9% 1,000 ML IV SCH (17:58)
[2019-06-09] MEDS: ceFAZolin 2 GM in SODIUM CHLORIDE 0.9% 100ML 100 ML IV SCH (21:20)
[2019-06-10 05:23] LABS: BASOPHILS % (AUTO) 0.1 %; EOSINOPHILS % (AUTO) 0.1 %; HGB - HEMOGLOBIN 13.3 g/dL (12.0-16.0); LYMPHOCYTES # (AUTO) 0.4 10^3/uL (1.5-3.5); LYMPHOCYTES % (AUTO) 4.1 %; MEAN CORPUSCULAR HEMOGLOBIN 31.2 pg (27.0-31.0); MEAN CORPUSCULAR VOLUME 97.4 fL (81.0-99.0); MEAN PLATELET VOLUME 9.5 fL (7.9-10.8); MONOCYTES # (AUTO) 0.4 10^3/uL (0.0-1.0); MONOCYTES % (AUTO) 5.2 %; NEUTROPHILS # (AUTO) 7.7 10^3/uL (1.5-6.6); NEUTROPHILS % (AUTO) 90.1 %; PLT - PLATELET COUNT 193 10^3/uL (130-450); RED BLOOD COUNT 4.26 10^6/uL (4.20-5.40); RED CELL DISTRIBUTION WIDTH 12.5 % (12.0-15.0); WHITE BLOOD COUNT 8.5 x10^3/uL (4.8-10.8)
[2019-06-10 05:32] LABS: CREATININE 0.8 mg/dL (0.4-1.0)
[2019-06-10] MEDS: ceFAZolin 2 GM in SODIUM CHLORIDE 0.9% 100ML 100 ML IV SCH (06:17)
[2019-06-10] MEDS: SODIUM CHLORIDE 0.9% 1,000 ML IV SCH ×2 (06:58→19:02)
[2019-06-10] MEDS: POLYETHYLENE GLYCOL 3350 17 GM PACKET PO SCH (09:05)
[2019-06-10] MEDS: DOCUSATE SODIUM 250 MG CAPSULE PO SCH (09:07)
[2019-06-10] MEDS: oxyCODONE 5 MG TABLET PO PRN ×3 (09:08→20:28)
[2019-06-10] MEDS: ASPIRIN 325 MG TABLET PO SCH ×2 (09:08→17:06)
[2019-06-10] MEDS: SODIUM CHLORIDE FLUSH 0.9% 10 ML SYRINGE IVP SCH ×2 (09:10→17:06)
--- NOTE | 2019-06-10 11:44 | PROVIDER PROGRESS NOTE ---
Subjective - Prog Note Date Prog Note Date: 06/10/19 Prog Note Time: 11:42 - Subjective Subjective: Right now pain is only when she moves her leg. Otherwise denies chest pain, cough, shortness of breath, Current Medications - Current Medications Current Medications: Active Medications Acetaminophen (Tylenol) 650 - 975 mg PO Q4HR PRN PRN Reason: PAIN Aspirin (Rich) 325 mg PO BIDWM [facility] Last Admin: 06/10/19 09:08 Dose: 325 mg Docusate Sodium (Colace 100mg Capsule) 100 mg PO BID PRN PRN Reason: Constipation Docusate Sodium (Colace 250mg Capsule) 250 - 500 mg PO DAILY [facility] Last Admin: 06/10/19 09:07 Dose: 250 mg Sodium Chloride (Normal Saline 0.9%) 1,000 mls @ 75 mls/hr IV .[id number] [facility] Last Admin: 06/10/19 06:58 Dose: 75 mls/hr Morphine Sulfate (Morphine (Carpuject)) 2 mg IVP Q2HR PRN PRN Reason: PAIN Last Admin: 06/09/19 23:48 Dose: 2 mg Ondansetron HCl (Zofran Odt) 4 mg TL Q6HR PRN PRN Reason: Nausea / Vomiting Ondansetron HCl (Zofran Inj) 4 mg IVP Q6HR PRN PRN Reason: Nausea / Vomiting Last Admin: 06/09/19 17:50 Dose: 4 mg Oxycodone HCl (Roxicodone) 5 mg PO Q4HR PRN PRN Reason: PAIN Last Admin: 06/10/19 09:08 Dose: 5 mg Polyethylene Glycol (Miralax) 17 gm PO DAILY [facility] Last Admin: 06/10/19 09:05 Dose: 17 gm Prochlorperazine Edisylate (Compazine Inj) 10 mg IVP Q6HR PRN PRN Reason: Nausea / Vomiting Senna (Senokot) 17.2 mg PO Q12H PRN PRN Reason: Constipation Sodium Chloride (Normal Saline Flush 0.9%) 10 ml IVP 0100,0900,1700 [facility] Last Admin: 06/10/19 09:10 Dose: Not Given Sodium Chloride (Normal Saline Flush 0.9%) 10 ml IVP PRN PRN PRN Reason: NEEDED PER PROVIDER ORDERS Last Admin: 06/09/19 19:57 Dose: 10 ml Levothyroxine [Synthroid] 25 mcg PO QDAC 01/04/18 Objective - Vital Signs/Intake & Output Reviewed Vital Signs: Yes Vital Signs: Vital Signs x48h Temp Pulse Pulse Resp BP Pulse Ox 06/10/19 10:43 67 154/61 H 06/10/19 10:42 73 142/72 H 06/10/19 07:39 36.5 C 85 16 141/63 H 93 06/10/19 05:15 36.5 C 72 16 94 06/10/19 04:54 36.5 C 72 16 165/64 H 94 Intake & Output: Intake & Output 06/07/19 06/08/19 06/09/19 06/10/19 23:59 23:59 23:59 23:59 Intake Total 2030 1347.5 Output Total 1600 150 Balance 430 1197.5 - Objective General Appearance: positive: No acute distress, Alert, Other (Slender, elderly white female, laying quietly in bed. She cannot figure out how to do the controls for the bedside rail to allow her to sit up to eat breakfast) Eyes Bilateral: positive: PERRL, EOMI ENT: positive: Pharynx nml Neck: positive: No JVD Respiratory: positive: Chest non-tender. negative: Wheezes, Rales, Rhonchi Cardiovascular: positive: Regular rate & rhythm. negative: Gallop/S4, Friction rub Abdomen: positive: Non-tender, No organomegaly, Nml bowel sounds, No distention Skin: positive: Warm, Dry Extremities: positive: Non-tender, No pedal edema Neurologic/Psychiatric: positive: CN's nml (2-12), Motor nml, Disoriented to person, Disoriented to place - Lab Results Fish Bones: 06/10/19 05:03 06/10/19 05:03 Other Labs: Lab Results x24hrs 06/10/19 06/10/19 Range/Units 05:03 05:03 WBC 8.5 (4.8-10.8) x10^3/uL RBC 4.26 (4.20-5.40) 10^6/uL Hgb 13.3 (12.0-16.0) g/dL Hct 41.5 (37.0-47.0) % MCV 97.4 (81.0-99.0) fL MCH 31.2 H (27.0-31.0) pg MCHC 32.0 (32.0-36.0) g/dL RDW 12.5 (12.0-15.0) % Plt Count 193 (130-450) 10^3/uL MPV 9.5 (7.9-10.8) fL Neut # (Auto) 7.7 H (1.5-6.6) 10^3/uL Lymph # (Auto) 0.4 L (1.5-3.5) 10^3/uL [place] # (Auto) 0.4 (0.0-1.0) 10^3/uL Eos # (Auto) 0.0 (0.0-0.7) 10^3/uL Baso # (Auto) 0.0 (0.0-0.1) 10^3/uL Absolute Nucleated RBC 0.00 x10^3/uL Nucleated RBC % 0.0 /100WBC Sodium 141 (135-145) mmol/L Potassium 4.1 (3.5-5.0) mmol/L Chloride 108 (101-111) mmol/L Carbon Dioxide 24 (21-32) mmol/L Anion Gap 9.0 (6-13) BUN 15 (6-20) mg/dL Creatinine 0.8 (0.4-1.0) mg/dL Estimated GFR (MDRD) 69 L (>89) Glucose 136 H (70-100) mg/dL Calcium 9.0 (8.5-10.3) mg/dL Assessment/Plan - Problem List (1) Femoral neck fracture Impression: Postoperative day #1 for closed reduction and multiple cannulated screw fixation of left subcapital hip fracture. Plan: No acute blood loss anemia seen on CBC as such no transfusion Physical therapy to start today Begin preliminary plans of deciding where her rehab will be. She has yet to identify which facility she wants. Will discuss with family. Qualifiers: Encounter type: initial encounter Fracture type: closed Laterality: left Qualified Code(s): S72.002A - Fracture of unspecified part of neck of left femur, initial encounter for closed fracture (2) Osteoporosis Impression: This is her second hip fracture. She is not on medications for osteoporosis. Would recommend she start on oral biphosphonate's in the next 4 to 6 weeks. Or she can do Reclast once a year. Start calcium and vitamin D during this admission. Qualifiers: Osteoporosis type: age-related Presence of current pathological fracture: with current pathological fracture Encounter type: initial encounter Qualified Code(s): M80.00XA - Age-related osteoporosis with current pathological fracture, unspecified site, initial encounter for fracture (3) Hypothyroidism Impression: Resume her usual home medication Qualifiers: Hypothyroidism type: acquired Qualified Code(s): E03.9 - Hypothyroidism, unspecified
[2019-06-10] MEDS: LEVOTHYROXINE 25 MCG TABLET PO SCH (11:58)
--- NOTE | 2019-06-10 14:39 | PROVIDER PROGRESS NOTE ---
Subjective - Prog Note Date Prog Note Date: 06/10/19 Prog Note Time: 14:37 - Subjective Pt reports feeling: Improved (Usual post op pain. Up in PT) Objective - Vital Signs/Intake & Output Vital Signs: Vital Signs x48h Temp Pulse Pulse Resp Resp BP BP 06/10/19 13:21 37 C 77 16 123/70 06/10/19 10:43 67 154/61 H 06/10/19 10:42 73 142/72 H 06/10/19 10:30 74 16 160/65 H 06/10/19 07:39 36.5 C 85 16 141/63 H BP Pulse Ox Pulse Ox 06/10/19 13:21 95 06/10/19 10:43 06/10/19 10:42 06/10/19 10:30 142/72 H 94 06/10/19 07:39 93 Intake & Output: Intake & Output 06/07/19 06/08/19 06/09/19 06/10/19 23:59 23:59 23:59 23:59 Intake Total 2030 1447.5 Output Total 1600 300 Balance 430 1147.5 - Lab Results Fish Bones: 06/10/19 05:03 06/10/19 05:03 Other Labs: Lab Results x24hrs 06/10/19 06/10/19 Range/Units 05:03 05:03 WBC 8.5 (4.8-10.8) x10^3/uL RBC 4.26 (4.20-5.40) 10^6/uL Hgb 13.3 (12.0-16.0) g/dL Hct 41.5 (37.0-47.0) % MCV 97.4 (81.0-99.0) fL MCH 31.2 H (27.0-31.0) pg MCHC 32.0 (32.0-36.0) g/dL RDW 12.5 (12.0-15.0) % Plt Count 193 (130-450) 10^3/uL MPV 9.5 (7.9-10.8) fL Neut # (Auto) 7.7 H (1.5-6.6) 10^3/uL Lymph # (Auto) 0.4 L (1.5-3.5) 10^3/uL [place] # (Auto) 0.4 (0.0-1.0) 10^3/uL Eos # (Auto) 0.0 (0.0-0.7) 10^3/uL Baso # (Auto) 0.0 (0.0-0.1) 10^3/uL Absolute Nucleated RBC 0.00 x10^3/uL Nucleated RBC % 0.0 /100WBC Sodium 141 (135-145) mmol/L Potassium 4.1 (3.5-5.0) mmol/L Chloride 108 (101-111) mmol/L Carbon Dioxide 24 (21-32) mmol/L Anion Gap 9.0 (6-13) BUN 15 (6-20) mg/dL Creatinine 0.8 (0.4-1.0) mg/dL Estimated GFR (MDRD) 69 L (>89) Glucose 136 H (70-100) mg/dL Calcium 9.0 (8.5-10.3) mg/dL - Other Results/Comments Other Results/Comments: Exam: Dressing dry. Mild hip tenderness. Some pain with hip rotation. N/V ok distally Assessment/Plan - Problem List (1) Fracture of femoral neck, left, closed Impression: Satis post op PLAN: Mobilize as tolerated. Qualifiers: Encounter type: initial encounter Qualified Code(s): S72.002A - Fracture of unspecified part of neck of left femur, initial encounter for closed fracture
[2019-06-10] MEDS: MORPHINE 2 MG/ML CARPUJECT IVP PRN ×2 (17:05→19:02)
[2019-06-11] MEDS: SODIUM CHLORIDE FLUSH 0.9% 10 ML SYRINGE IVP SCH ×3 (01:00→17:35)
[2019-06-11] MEDS: oxyCODONE 5 MG TABLET PO PRN ×3 (03:22→17:38)
[2019-06-11 04:55] LABS: BASOPHILS % (AUTO) 0.5 %; EOSINOPHILS # (AUTO) 0.3 10^3/uL (0.0-0.7); EOSINOPHILS % (AUTO) 4.1 %; HGB - HEMOGLOBIN 11.6 g/dL (12.0-16.0); LYMPHOCYTES # (AUTO) 0.5 10^3/uL (1.5-3.5); LYMPHOCYTES % (AUTO) 6.5 %; MEAN CORPUSCULAR HEMOGLOBIN 32.1 pg (27.0-31.0); MEAN CORPUSCULAR HGB CONC 32.9 g/dL (32.0-36.0); MEAN CORPUSCULAR VOLUME 97.8 fL (81.0-99.0); MEAN PLATELET VOLUME 9.4 fL (7.9-10.8); MONOCYTES # (AUTO) 0.6 10^3/uL (0.0-1.0); MONOCYTES % (AUTO) 7.4 %; PLT - PLATELET COUNT 174 10^3/uL (130-450); RED BLOOD COUNT 3.61 10^6/uL (4.20-5.40); RED CELL DISTRIBUTION WIDTH 12.5 % (12.0-15.0); WHITE BLOOD COUNT 7.4 x10^3/uL (4.8-10.8)
[2019-06-11 05:08] LABS: CALCIUM 8.2 mg/dL (8.5-10.3); CREATININE 0.7 mg/dL (0.4-1.0)
[2019-06-11] MEDS: LEVOTHYROXINE 25 MCG TABLET PO SCH (06:00)
[2019-06-11] MEDS: SODIUM CHLORIDE 0.9% 1,000 ML IV SCH ×2 (07:21→08:03)
[2019-06-11] MEDS ORDERED: POTASSIUM CHLORIDE 20 MEQ TABLET PO ONE (07:22)
--- NOTE | 2019-06-11 07:31 | PROVIDER PROGRESS NOTE ---
Subjective - Prog Note Date Prog Note Date: 06/11/19 Prog Note Time: 09:24 - Subjective Subjective: shes Up in her chair. Eating breakfast. Other than pain in her leg, she denies any chest pain, abdominal pain. She still has not decided where she would like to go. She is fretful about that. She would rather her daughter make the decision. Unfortunately her daughter has not spoken to me. I have asked for nursing to come get me the last couple of days, when the daughter appears. Current Medications - Current Medications Current Medications: Active Medications Acetaminophen (Tylenol) 650 - 975 mg PO Q4HR PRN PRN Reason: PAIN Aspirin (Rich) 325 mg PO BIDWM [facility] Last Admin: 06/11/19 08:05 Dose: 325 mg Calcium Citrate () 250 mg PO BID [facility] Last Admin: 06/11/19 08:05 Dose: 250 mg Cholecalciferol (Vitamin D3) 1,000 unit PO DAILY [facility] Last Admin: 06/11/19 08:04 Dose: 1,000 unit Docusate Sodium (Colace 100mg Capsule) 100 mg PO BID PRN PRN Reason: Constipation Docusate Sodium (Colace 250mg Capsule) 250 - 500 mg PO DAILY [facility] Last Admin: 06/11/19 08:08 Dose: 250 mg Sodium Chloride (Normal Saline 0.9%) 1,000 mls @ 75 mls/hr IV .[id number] [facility] Last Admin: 06/11/19 08:03 Dose: 75 mls/hr Levothyroxine Sodium (Synthroid) 25 mcg PO QDAC [facility] Last Admin: 06/11/19 06:00 Dose: 25 mcg Morphine Sulfate (Morphine (Carpuject)) 2 mg IVP Q2HR PRN PRN Reason: PAIN Last Admin: 06/10/19 19:02 Dose: 2 mg Ondansetron HCl (Zofran Odt) 4 mg TL Q6HR PRN PRN Reason: Nausea / Vomiting Ondansetron HCl (Zofran Inj) 4 mg IVP Q6HR PRN PRN Reason: Nausea / Vomiting Last Admin: 06/09/19 17:50 Dose: 4 mg Oxycodone HCl (Roxicodone) 5 mg PO Q4HR PRN PRN Reason: PAIN Last Admin: 06/11/19 03:22 Dose: 5 mg Polyethylene Glycol (Miralax) 17 gm PO DAILY [facility] Last Admin: 06/11/19 08:04 Dose: 17 gm Potassium Chloride (K-Dur) 20 meq PO DAILYWM [facility] Prochlorperazine Edisylate (Compazine Inj) 10 mg IVP Q6HR PRN PRN Reason: Nausea / Vomiting Last Admin: 06/10/19 19:02 Dose: 10 mg Senna (Senokot) 17.2 mg PO Q12H PRN PRN Reason: Constipation Sodium Chloride (Normal Saline Flush 0.9%) 10 ml IVP 0100,0900,1700 [facility] Last Admin: 06/11/19 01:00 Dose: Not Given Sodium Chloride (Normal Saline Flush 0.9%) 10 ml IVP PRN PRN PRN Reason: NEEDED PER PROVIDER ORDERS Last Admin: 06/09/19 19:57 Dose: 10 ml Levothyroxine [Synthroid] 25 mcg PO QDAC 01/04/18 Objective - Vital Signs/Intake & Output Reviewed Vital Signs: Yes Vital Signs: Vital Signs x48h Temp Pulse Resp BP Pulse Ox 06/11/19 06:00 37.2 C 73 18 163/68 H 93 06/11/19 02:00 37.5 C 78 20 151/68 H 93 Intake & Output: Intake & Output 06/08/19 06/09/19 06/10/19 06/11/19 23:59 23:59 23:59 23:59 Intake Total 2030 3127.5 Output Total 1600 1150 Balance 430 1977.5 - Objective General Appearance: positive: Alert Eyes Bilateral: positive: PERRL, EOMI ENT: positive: Pharynx nml Neck: positive: No JVD. negative: Stiff neck Respiratory: positive: Chest non-tender. negative: Wheezes, Rales, Rhonchi Cardiovascular: positive: Regular rate & rhythm. negative: Gallop/S4, Friction rub Abdomen: positive: Non-tender, No organomegaly, Nml bowel sounds, No distention Skin: positive: Warm, Dry Extremities: positive: Full ROM, No pedal edema Neurologic/Psychiatric: positive: CN's nml (2-12), Motor nml, Disoriented to time, Other (Is vague affect. Gets very fretful when she has to make decisions. I cannot tell if there is dementia or gentle anxiety disorder) - Lab Results Fish Bones: 06/11/19 04:41 06/11/19 04:41 Other Labs: Lab Results x24hrs 06/11/19 06/11/19 Range/Units 04:41 04:41 WBC 7.4 (4.8-10.8) x10^3/uL RBC 3.61 L (4.20-5.40) 10^6/uL Hgb 11.6 L (12.0-16.0) g/dL Hct 35.3 L (37.0-47.0) % MCV 97.8 (81.0-99.0) fL MCH 32.1 H (27.0-31.0) pg MCHC 32.9 (32.0-36.0) g/dL RDW 12.5 (12.0-15.0) % Plt Count 174 (130-450) 10^3/uL MPV 9.4 (7.9-10.8) fL Neut # (Auto) 6.0 (1.5-6.6) 10^3/uL Lymph # (Auto) 0.5 L (1.5-3.5) 10^3/uL [place] # (Auto) 0.6 (0.0-1.0) 10^3/uL Eos # (Auto) 0.3 (0.0-0.7) 10^3/uL Baso # (Auto) 0.0 (0.0-0.1) 10^3/uL Absolute Nucleated RBC 0.00 x10^3/uL Nucleated RBC % 0.0 /100WBC Sodium 142 (135-145) mmol/L Potassium 3.3 L (3.5-5.0) mmol/L Chloride 110 (101-111) mmol/L Carbon Dioxide 25 (21-32) mmol/L Anion Gap 7.0 (6-13) BUN 13 (6-20) mg/dL Creatinine 0.7 (0.4-1.0) mg/dL Estimated GFR (MDRD) 80 L (>89) Glucose 117 H (70-100) mg/dL Calcium 8.2 L (8.5-10.3) mg/dL ABX Reporting Has patient been on IV antibiotics over the past 48 hours?: No Assessment/Plan - Problem List (1) Femoral neck fracture Impression: Postoperative day #2 for closed reduction and multiple cannulated screw fixation of left subcapital hip fracture. Plan: No acute blood loss anemia seen on CBC as such no transfusion Physical therapy started yesterday and she is progressing Plans of deciding where her rehab will be still have not been discussed. She can' decide. I've been waiting for RNs to call me when family arrives during the day. If I don't speak to them by late morning, I will call. Qualifiers: Encounter type: initial encounter Fracture type: closed Laterality: left Qualified Code(s): S72.002A - Fracture of unspecified part of neck of left femur, initial encounter for closed fracture (2) Osteoporosis Impression: This is her second hip fracture. She is not on medications for osteoporosis. Would recommend she start on oral biphosphonate's in the next 4 to 6 weeks. Or she can do Reclast once a year. Start calcium and vitamin D during this admission. Qualifiers: Osteoporosis type: age-related Presence of current pathological fracture: with current pathological fracture Encounter type: initial encounter Qualified Code(s): M80.00XA - Age-related osteoporosis with current pathological fracture, unspecified site, initial encounter for fracture (3) Hypothyroidism Impression: Resume her usual home medication Qualifiers: Hypothyroidism type: acquired Qualified Code(s): E03.9 - Hypothyroidism, unspecified Qualifiers: Qualified Code(s): S72.002A - Fracture of unspecified part of neck of left femur, initial encounter for closed fracture
[2019-06-11] MEDS: POLYETHYLENE GLYCOL 3350 17 GM PACKET PO SCH (08:04)
[2019-06-11] MEDS: CHOLECALCIFEROL 1,000 UNIT TABLET PO SCH (08:04)
[2019-06-11] MEDS: CALCIUM CITRATE 250 MG TABLET PO SCH ×2 (08:05→21:09)
[2019-06-11] MEDS: ASPIRIN 325 MG TABLET PO SCH ×2 (08:05→17:35)
[2019-06-11] MEDS: DOCUSATE SODIUM 250 MG CAPSULE PO SCH (08:08)
--- NOTE | 2019-06-11 14:27 | PROVIDER PROGRESS NOTE ---
Subjective - Prog Note Date Prog Note Date: 06/11/19 Prog Note Time: 14:21 - Subjective Pt reports feeling: Improved (Less pain. Up in PT) Objective - Vital Signs/Intake & Output Vital Signs: Vital Signs x48h Temp Pulse Resp BP Pulse Ox 06/11/19 12:01 37.0 C 69 18 167/50 H 95 06/11/19 08:27 36.5 C 75 18 174/78 H 92 06/11/19 07:49 37.6 C H 76 17 188/82 H 95 Intake & Output: Intake & Output 06/08/19 06/09/19 06/10/19 06/11/19 23:59 23:59 23:59 23:59 Intake Total 2030 3127.5 1676.25 Output Total 1600 1150 150 Balance 430 1977.5 1526.25 - Lab Results Fish Bones: 06/11/19 04:41 06/11/19 04:41 Other Labs: Lab Results x24hrs 06/11/19 06/11/19 Range/Units 04:41 04:41 WBC 7.4 (4.8-10.8) x10^3/uL RBC 3.61 L (4.20-5.40) 10^6/uL Hgb 11.6 L (12.0-16.0) g/dL Hct 35.3 L (37.0-47.0) % MCV 97.8 (81.0-99.0) fL MCH 32.1 H (27.0-31.0) pg MCHC 32.9 (32.0-36.0) g/dL RDW 12.5 (12.0-15.0) % Plt Count 174 (130-450) 10^3/uL MPV 9.4 (7.9-10.8) fL Neut # (Auto) 6.0 (1.5-6.6) 10^3/uL Lymph # (Auto) 0.5 L (1.5-3.5) 10^3/uL [place] # (Auto) 0.6 (0.0-1.0) 10^3/uL Eos # (Auto) 0.3 (0.0-0.7) 10^3/uL Baso # (Auto) 0.0 (0.0-0.1) 10^3/uL Absolute Nucleated RBC 0.00 x10^3/uL Nucleated RBC % 0.0 /100WBC Sodium 142 (135-145) mmol/L Potassium 3.3 L (3.5-5.0) mmol/L Chloride 110 (101-111) mmol/L Carbon Dioxide 25 (21-32) mmol/L Anion Gap 7.0 (6-13) BUN 13 (6-20) mg/dL Creatinine 0.7 (0.4-1.0) mg/dL Estimated GFR (MDRD) 80 L (>89) Glucose 117 H (70-100) mg/dL Calcium 8.2 L (8.5-10.3) mg/dL - Other Results/Comments Other Results/Comments: EXAM: Wound dressing intact and dry. Mild anterior groin tenderness. Much less pain with hip rotation today. N/V ok distally Assessment/Plan - Problem List (1) Fracture of femoral neck, left, closed Impression: Satis post op PLAN: To Snf in AM. Continue PT : walker ambulate - WBAT on left. Aspirin for DVT prophylaxis. Follow up in orthopedic clinic in 2 weeks for marilynn out and new XR. Qualifiers: Encounter type: initial encounter Qualified Code(s): S72.002A - Fracture of unspecified part of neck of left femur, initial encounter for closed fracture
[2019-06-12] MEDS: SODIUM CHLORIDE FLUSH 0.9% 10 ML SYRINGE IVP SCH ×2 (00:23→08:18)
[2019-06-12] MEDS: oxyCODONE 5 MG TABLET PO PRN ×3 (02:07→12:05)
[2019-06-12 05:24] LABS: BASOPHILS % (AUTO) 0.3 %; EOSINOPHILS # (AUTO) 0.4 10^3/uL (0.0-0.7); EOSINOPHILS % (AUTO) 6.1 %; HGB - HEMOGLOBIN 11.7 g/dL (12.0-16.0); LYMPHOCYTES # (AUTO) 0.7 10^3/uL (1.5-3.5); LYMPHOCYTES % (AUTO) 11.9 %; MEAN CORPUSCULAR HEMOGLOBIN 31.1 pg (27.0-31.0); MEAN CORPUSCULAR HGB CONC 32.2 g/dL (32.0-36.0); MEAN CORPUSCULAR VOLUME 96.5 fL (81.0-99.0); MEAN PLATELET VOLUME 9.7 fL (7.9-10.8); MONOCYTES # (AUTO) 0.4 10^3/uL (0.0-1.0); MONOCYTES % (AUTO) 7.5 %; NEUTROPHILS # (AUTO) 4.4 10^3/uL (1.5-6.6); NEUTROPHILS % (AUTO) 73.9 %; PLT - PLATELET COUNT 179 10^3/uL (130-450); RED BLOOD COUNT 3.76 10^6/uL (4.20-5.40); RED CELL DISTRIBUTION WIDTH 12.6 % (12.0-15.0); WHITE BLOOD COUNT 5.9 x10^3/uL (4.8-10.8)
[2019-06-12 05:36] LABS: CALCIUM 8.8 mg/dL (8.5-10.3); CREATININE 0.8 mg/dL (0.4-1.0)
[2019-06-12] MEDS: LEVOTHYROXINE 25 MCG TABLET PO SCH (06:57)
[2019-06-12] MEDS ORDERED: POTASSIUM CHLORIDE 20 MEQ TABLET PO SCH (08:00)
--- NOTE | 2019-06-12 08:09 | Discharge Plan ---
"Discharge Plan for SNF / [facility] - Discharge Plan And Transition Orders Problem Reviewed?: Yes Disposition: 03 SNF DC/Xfer Condition: Stable Allergies and Adverse Reactions: Allergies Allergy/AdvReac Type Severity Reaction Status Date / Time No Known Drug Allergies Allergy Verified 06/08/19 23:06 Health Concerns: You slipped and fell in your kitchen trying to get a glass of juice out of the refrigerator. When you fell you broke your hip. You already had a history of breaking your other hip 2 years ago. Up until now you have not been treated for osteoporosis. Plan of Treatment: You were operated on by Dr. Quan Mead. You underwent a cannulated screw fixation of the left hip fracture. He inserted 3 screws. During your stay, the only other thing we noticed was elevated blood pressure. At times your blood pressure was high at 176/79. Normal blood pressure is less than 140/80. We started you on a blood pressure pill. Care Goals: 1. You will be transferred to [facility] for rehabilitation following your hip fracture. This will let you regain strength for independence to go back home. 2. Please see your primary care provider when you get out of rehabilitation. Although Omaira Pineda may have left the office, you can still see 1 of the doctors in that office 3. I have started you on treatment for osteoporosis. Right now it is simply starting calcium and vitamin D. Take calcium and vitamin D twice a day. 4. In 4 to 6 weeks please consider taking osteoporosis medicine in the form of Reclast. Reclast is an intravenous infusion of once a year. It is very easy to use. 5. While here your blood pressure was elevated. We started you on a very low dose of a blood pressure medicine called Norvasc. The generic name is amlodipine. Its main side effects are headaches and slightly swollen ankles. If you feel that you have those side effects and cannot tolerate this medicine, let your primary care provider know so that they can change you to a different blood pressure medicine. 6. Dr. Mead would like to see you in 2 weeks. If he is not in town you can see 1 of his partners in the orthopedic office. They will need to check an x-ray, remove the marilynn, and otherwise clear you from your surgery. Assessment: Patient has slight memory loss. These treatment goals were reviewed with her daughter and arrangements will be made for follow-up. - SNF / [facility] Transition Orders Admit to (Facility): [facility] Under the care of (Name): Omaira Pineda Discharge Diagnosis: #1. Femoral neck fracture #2 fall at home #3 osteoporosis #4 hypothyroidism #5 hypertension Medicare Certification Statement: I certify that [facility] prison care is medically necessary on a continuing basis for any of the conditions for which she/he is receiving care during hospitalization. Notify PCP of admission and forward orders to primary provider for signature. Weight on admission and: Weekly Call PCP immediately if weight increases by: 2.2 kg Other Notification Orders: Call PCP immediately if patient develops dyspnea, chest pain/tightness or edema. House Bowel Program: Yes Additional Bowel Program Orders: If no BM after 2 days, nurse may give M.O.M. 30ml PO PRN and/or ducolax Supp 1 SC and/or ROSMERY 250mg P.O., and/or senna 1-2 tabs PO. On day 3 nurse may give repeat above order until residents constipation is resolved. Annual Influenza Vaccine (between Jul 02 and January 29): Yes Two-step PPD per [facility] [id number] or approved exception documents: Yes Medication Orders: PLEASE REFER TO THE DISCHARGE MEDICATION LIST. Insulin Orders?: No - Medications New Prescriptions: oxyCODONE [Roxicodone] 5 mg PO Q4HR PRN #30 tablet PRN Reason: Pain - Diet Type: Geriatric Texture: Regular Liquids: Thin May have monthly special meal: Yes - Therapies | Activity Therapy: Evaluation | Treat if indicated: PT, OT Rehabilitation Potential: Return to independent living Activity: Activity as Tolerated Weight Bearing: Full Weight (as tolerated to LLE) Additional Instructions: 1. Weightbearing as tolerated for the left hip 2. Keep wound clean and dry. No bandages needed 3. Patient needs to be seen by orthopedics in the next 2 weeks for staple removal and follow-up with plain film"
[2019-06-12] MEDS: ASPIRIN 325 MG TABLET PO SCH (08:11)
[2019-06-12] MEDS: POLYETHYLENE GLYCOL 3350 17 GM PACKET PO SCH (08:12)
[2019-06-12] MEDS: DOCUSATE SODIUM 250 MG CAPSULE PO SCH (08:12)
[2019-06-12] MEDS ORDERED: amLODIPine 5 MG TABLET PO SCH (09:00)
[2019-06-12 11:38] VITALS: BP 168/67
[2019-06-12] MEDS: CHOLECALCIFEROL 1,000 UNIT TABLET PO SCH (12:06)
[2019-06-12] MEDS: CALCIUM CITRATE 250 MG TABLET PO SCH (12:06)
--- NOTE | 2019-06-12 15:52 | DISCHARGE SUMMARY ---
"Discharge Summary Admit Date: 06/09/19 Discharge Date: 06/12/19 Discharging Provider: Deneen Donohue MD Primary Care Provider: Omaira Pineda MD Code Status: Do Not Attempt Resuscitation Condition at Discharge: Stable Discharge Disposition: 03 SNF DC/Xfer Discharge Facility Name: [facility] - DIAGNOSES Discharge Diagnoses with Status of Each Condition: 1. Fracture of left femoral neck 2. Age-related osteoporosis 3. Hypothyroidism likely 4. hypertension - HPI History of Present Illness: Patient seen and examined on 06/09/19 at 02:00 am Patient is an 83 y/o female who presented to the ED after a mechanical fall at home. She was getting juice from the refrigerator when she slipped on water on the floor, lost her balance and fell. She did not hit her head or loss her bal ance. She was brought in by EMS. Work up in the ED included xray of the hips and a CT of the pelvis which showed a minimally displaced angulated left femoral neck fractured. She is currently resting comfortably in bed. She denies chest pain, N[place]EL, abd pain, n/v, fever or chills. She rates her hip pain as 4/10 currently. She was last admitted to the hospital last year. She had a right hip replacement at that time. She is being admitted for further treatment. 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 Closed reduction multiple cannulated screw fixation of the left hip fracture, June 09 2. Hip and pelvis x-ray showing no evidence of acute fracture or dislocation. Degenerative changes of the hip seen. 3. Pelvis CT showing impacted, mildly angulated left femoral neck fracture. Previous dynamic compression screw and short IM chino fixation of the right hip. 4. Chest x-ray large volumes with mild cardiomegaly and borderline pulmonary vascularity - HOSPITAL COURSE Hospital Course: She was taken to the operating room and underwent 3 pinning's to that left femoral neck, done by Dr. Mead. Postoperatively there was no acute blood loss anemia. She progressed well with diet and ambulation. Work with physical therapy. Because she now has a diagnosis of age-related osteoporosis (really diagnosis was made with her last hip fracture), she was started on calcium and vitamin D. I would strongly recommend Reclast once a year. She is starting to have problems with memory and taking pills on a regular basis may become problematic. Her daughter, who is at the bedside, feels that is a great idea. I asked her to see her primary care provider in follow-up and ask for Reclast infusion once a year. Continue the calcium with vitamin D. Her to TSH was normal. She was continued on her medication for hypothyroidism. During her stay her systolic was consistently elevated at 1 50-1 70. She was started on Norvasc 2.5 mg a day. I have asked her to see her primary care provider after she is finished with rehab at [facility]. She is transferred in stable condition with a temperature of 37.2 pulse 77 blood pressure 168/67. Respirations 18. 95% on room air. She is a slender, slightly underweight elderly female who is 5 foot tall and weighs 47 kg. Neck is supple. Lungs are clear to auscultation and percussion. PMI is normally placed with a regular rate and rhythm. The abdomen is soft and nontender. The hip wound is closed, healed, no exudate, redness, heat. Extremities are without clubbing cyanosis or edema. Dr. Mead would like to see her in the office in 2 weeks. [place] will be removed then. Plain film will be checked in the office. She is to undergo rehab and have weightbearing as tolerated. The wound may be cleaned but to be kept dry. - ALLERGIES Allergies/Adverse Reactions: Allergies Allergy/AdvReac Type Severity Reaction Status Date / Time No Known Drug Allergies Allergy Verified 06/08/19 23:06 - MEDICATIONS Home Medications: Ambulatory Orders Medication Instructions Recorded Confirmed Levothyroxine [Synthroid] 25 mcg PO QDAC 01/04/18 06/09/19 Acetaminophen [Tylenol] 650 - 975 mg PO Q4HR PRN tablet 06/12/19 Potassium Chloride [K-Dur] 20 meq PO DAILYWM #1 tablet 06/12/19 amLODIPine [Norvasc] 2.5 mg PO DAILY tablet 06/12/19 oxyCODONE [Roxicodone] 5 mg PO Q4HR PRN #30 tablet 06/12/19 - LABS Result Diagrams: 06/12/19 04:53 06/12/19 04:53 - TIME SPENT Time Spent in Discharge (Minutes): 35"
== END 2019-06-12 13:40 | DRG 482 ==
LOC: EDUNIT# → ED 23:01 → MS2 06-09 01:42
PROVIDERS: ADMIT Internal Medicine; ATTEND Specialist
PROC: 0QS734Z Reposition Left Upper Femur with Internal Fixation Device, Percutaneous Approach (ICD-10-PCS; principal; 2019-06-09 13:00)
DX: S72.002A Fracture of unspecified part of neck of left femur, initial encounter for closed fracture (principal); S72.012A Unspecified intracapsular fracture of left femur, initial encounter for closed fracture; M81.0 Age-related osteoporosis without current pathological fracture; Y92.009 Unspecified place in unspecified non-institutional (private) residence as the place of occurrence of the external cause; W01.0XXA Fall on same level from slipping, tripping and stumbling without subsequent striking against object, initial encounter; Y92.000 Kitchen of unspecified non-institutional (private) residence as the place of occurrence of the external cause; E03.9 Hypothyroidism, unspecified; I10 Essential (primary) hypertension; R41.3 Other amnesia; R63.6 Underweight; Z68.20 Body mass index [BMI] 20.0-20.9, adult; Z96.641 Presence of right artificial hip joint
CPT/HCPCS: 36415; 71045; 72192; 73501; 73502; 80048; 80053; 81003; 83690; 85025; 93005; 97110; 97161; 97530; 99284; 99285; A9270; J7120; 81001; 87086

== ENCOUNTER 2019-06-09 03:10 | Outpatient (CLI) | payer MEDICARE, OTHER ==
[2019-06-19 08:52] LABS: BILIRUBIN,URINE NEGATIVE (NEGATIVE); GLUCOSE, URINE (UA) NEGATIVE (NEGATIVE); KETONES,URINE (UA) NEGATIVE (NEGATIVE); LEUKOCYTE ESTERASE, URINE TRACE (NEGATIVE); NITRITE,URINE NEGATIVE (NEGATIVE); OCCULT BLOOD,URINE NEGATIVE (NEGATIVE); PH,URINE 7.5 PH (5.0-7.5); PROTEIN,URINE NEGATIVE (NEGATIVE); UROBILINOGEN,URINE 0.2 (NORMAL) E.U./dL (NORMAL)
[2019-06-19 08:55] LABS: CLARITY,URINE SL. CLOUDY (CLEAR)
[2019-06-19 09:04] LABS: AMORPHOUS SEDIMENT,UR Moderate /LPF; BACTERIA,URINE Moderate /HPF (None Seen); RBC,URINE 0-5 /HPF (0-5); SQUAMOUS EPITHELIAL CELL,UR RARE Squamous (<= Few)
== END 2019-06-09 23:59 | disposition home or self-care (01) ==
LOC: LAB.R 03:10
PROVIDERS: ATTEND Family Medicine
DX: N39.0 Urinary tract infection, site not specified (principal)
CPT/HCPCS: 81001; 81003; 87077; 87086; 87181

== ENCOUNTER 2019-06-20 08:00 | Outpatient (CLI) | payer MEDICARE, OTHER ==
[2019-06-20 17:46] LABS: BASOPHILS # (AUTO) 0.1 10^3/uL (0.0-0.1); BASOPHILS % (AUTO) 0.4 %; EOSINOPHILS # (AUTO) 0.2 10^3/uL (0.0-0.7); EOSINOPHILS % (AUTO) 1.8 %; LYMPHOCYTES # (AUTO) 0.7 10^3/uL (1.5-3.5); LYMPHOCYTES % (AUTO) 6.5 %; MEAN CORPUSCULAR HEMOGLOBIN 31.7 pg (27.0-31.0); MEAN CORPUSCULAR HGB CONC 32.5 g/dL (32.0-36.0); MEAN CORPUSCULAR VOLUME 97.5 fL (81.0-99.0); MEAN PLATELET VOLUME 9.6 fL (7.9-10.8); MONOCYTES # (AUTO) 0.6 10^3/uL (0.0-1.0); NEUTROPHILS # (AUTO) 9.5 10^3/uL (1.5-6.6); NEUTROPHILS % (AUTO) 85.9 %; PLT - PLATELET COUNT 398 10^3/uL (130-450); RED BLOOD COUNT 4.42 10^6/uL (4.20-5.40); RED CELL DISTRIBUTION WIDTH 12.6 % (12.0-15.0); WHITE BLOOD COUNT 11.1 x10^3/uL (4.8-10.8)
[2019-06-20 18:00] LABS: CALCIUM 9.2 mg/dL (8.5-10.3); CREATININE 0.7 mg/dL (0.4-1.0)
== END 2019-06-20 23:59 | disposition home or self-care (01) ==
LOC: LAB.R 08:00
DX: E87.6 Hypokalemia (principal); I10 Essential (primary) hypertension; D64.9 Anemia, unspecified
CPT/HCPCS: 80048; 82728; 85025

== ENCOUNTER 2019-07-24 11:53 | Outpatient (CLI) | payer MEDICARE, OTHER ==
--- NOTE | 2019-07-24 14:06 | MRI Report ---
Reason: MEMORY LOSS Procedure Date: 07/24/2019 Accession Number: [id number] / [id number] Procedure: MRI - Brain W/O CPT Code: FULL RESULT: EXAM: MRI BRAIN WITHOUT CONTRAST EXAM DATE: 07/24/2019 01:12 PM. CLINICAL HISTORY: Memory loss. COMPARISON: HEAD W/O 02/25/2018 11:40 AM. TECHNIQUE: Multiplanar, multisequence T1-weighted and fluid-sensitive MR sequences of the brain were performed. Sequences optimized for routine evaluation. Other: None. IV Contrast: None. FINDINGS: Brain Volume: Similar findings of moderately prominent generalized cerebral volume loss. Parenchyma/Dura: No restricted diffusion to suggest acute or recent ischemic infarct. No evidence for cerebral hemorrhage, midline shift or abnormal subdural fluid collection. Moderately prominent but chronic appearing bilateral cerebral white matter disease is present, T2 hyperintensities are patchy and confluent at the margins of the lateral ventricles and there are additional scattered regions of deep white matter T2 hyperintensity, these findings are likely attributable to aging and chronic microangiopathy. Ventricles/Cisterns: Moderate ventriculomegaly, stable compared to the previous study. There is likely a component of brain volume loss though the degree of ventricular enlargement is probably out of proportion to the degree of superior cerebral sulcal enlargement raising the possibility of normal pressure hydrocephalus. Orbits: Symmetric and unremarkable. Sella Turcica: No evidence for space-occupying lesion. Unremarkable contours of the optic chiasm. IAC: Grossly symmetric and unremarkable but evaluation is inherently limited by noncontrast imaging technique. Vasculature: The major arterial skull base flow voids are present. Sinuses: No acute sinus or mastoid fluid opacity. Bones: No focal marrow edema. Other: None. IMPRESSION: 1. No MRI evidence of acute intracranial abnormality. 2. Atrophy and prominent white matter disease, these changes are likely attributable to aging and chronic microangiopathy. 3. Moderately prominent but grossly stable ventriculomegaly. The appearance is nonspecific and there is likely a component of central greater than peripheral atrophy but normal pressure hydrocephalus is also in the differential. RADIA
== END 2019-07-24 11:54 | disposition home or self-care (01) ==
LOC: DI 11:53
PROVIDERS: ATTEND Psychiatry & Neurology Neurology
DX: R41.3 Other amnesia (principal); G31.9 Degenerative disease of nervous system, unspecified
CPT/HCPCS: 70551